=== PATIENT | male | born 1990 | race Hispanic/Latino ===

== ENCOUNTER 2019-11-01 08:27 | Emergency (ER) | payer MEDICAID ==
[2019-11-01 08:33] VITALS: BP 151/93
--- NOTE | 2019-11-01 10:20 | Emergency Department Report ---
ED ENT HPI - General Chief complaint: Dental/Oral Stated complaint: LFT SIDE TOOTHACHE/SWELLING Time Seen by Provider: 11/01/19 10:17 Source: patient Mode of arrival: Ambulatory Limitations: No Limitations - History of Present Illness Initial comments: 29-year-old male presents to the emergency room complaining of dental pain and swelling to the left side of his face started 1 day ago. Patient does have a past medical history of schizophrenia and reports he takes his medications. Patient does report he is aware that he has some bad teeth in his mouth. Patient states daily he does have a pillowcase folder that is planning to take him to the dentist. Patient denies any fever chills no nausea no vomiting no headache. MD complaint: tooth pain - Related Data Previous Rx's Medication Instructions Recorded Last Taken Type Clindamycin [Clindamycin CAP] 300 mg PO Q8H #30 capsule 11/01/19 Unknown Rx Ibuprofen [Motrin 600 MG tab] 600 mg PO Q8H PRN #30 tablet 11/01/19 Unknown Rx Allergies Allergy/AdvReac Type Severity Reaction Status Date / Time No Known Allergies Allergy Verified 10/19/19 08:50 ED Dental HPI - General Chief complaint: Dental/Oral Stated complaint: LFT SIDE TOOTHACHE/SWELLING Time Seen by Provider: 11/01/19 10:17 Source: patient Mode of arrival: Ambulatory Limitations: No Limitations - Related Data Previous Rx's Medication Instructions Recorded Last Taken Type Clindamycin [Clindamycin CAP] 300 mg PO Q8H #30 capsule 11/01/19 Unknown Rx Ibuprofen [Motrin 600 MG tab] 600 mg PO Q8H PRN #30 tablet 11/01/19 Unknown Rx Allergies Allergy/AdvReac Type Severity Reaction Status Date / Time No Known Allergies Allergy Verified 10/19/19 08:50 ED Review of Systems ROS: Stated complaint: LFT SIDE TOOTHACHE/SWELLING Other details as noted in HPI ED Past Medical Hx - Past Medical History Previous Medical History?: Yes Hx Psychiatric Treatment: Yes (schizophrenia) - Surgical History Past Surgical History?: No - Social History Smoking Status: Never Smoker Substance Use Type: None - Medications Home Medications: Home Medications Medication Instructions Recorded Confirmed Last Taken Type Clindamycin [Clindamycin CAP] 300 mg PO Q8H #30 capsule 11/01/19 Unknown Rx Ibuprofen [Motrin 600 MG tab] 600 mg PO Q8H PRN #30 tablet 11/01/19 Unknown Rx ED Physical Exam - General Limitations: No Limitations ED Course Vital Signs 11/01/19 08:28 Temperature 99 F Pulse Rate 145 H Respiratory 16 Rate Blood Pressure 151/93 O2 Sat by Pulse 97 Oximetry ED Medical Decision Making - Medical Decision Making 29-year-old male presents to the emergency room complaining of dental pain and swelling to the left side of his face started 1 day ago. Patient does have a past medical history of schizophrenia and reports he takes his medications. Patient does report he is aware that he has some bad teeth in his mouth. Patient states daily he does have a pillowcase folder that is planning to take him to the dentist. Patient denies any fever chills no nausea no vomiting no headache. Patient be given ibuprofen and clindamycin during his ER visit. Patient be discharged home on ibuprofen and clindamycin and a referral to dental. Critical care attestation.: If time is entered above; I have spent that time in minutes in the direct care of this critically ill patient, excluding procedure time. ED Disposition Clinical Impression: Dental abscess Disposition: TO HOME OR SELFCARE Is pt being admited?: No Does the pt Need Aspirin: No Condition: Stable Instructions: Abscess (ED) Additional Instructions: Complete antibiotics as prescribed. Pain medication as needed. Is imperative that you follow-up with a dentist as she had multiple decaying your mouth. Prescriptions: Clindamycin [Clindamycin CAP] 300 mg PO Q8H #30 capsule Ibuprofen [Motrin 600 MG tab] 600 mg PO Q8H PRN #30 tablet PRN Reason: Pain , Severe (7-10) Referrals: [facility] [Outside] - 3-[address] [facility] [Outside] - 3-5 Days Forms: Work/School Release Form(ED)
[2019-11-01] MEDS ORDERED: CLINDAMYCIN 300 MG CAP PO ONE (10:25)
[2019-11-01] MEDS ORDERED: IBUPROFEN 600 MG TAB PO ONE (10:25)
== END 2019-11-01 11:01 | disposition home or self-care (01) ==
LOC: ED 08:27
DX: K04.7 Periapical abscess without sinus (principal); F20.9 Schizophrenia, unspecified; Z79.1 Long term (current) use of non-steroidal anti-inflammatories (NSAID); Z79.2 Long term (current) use of antibiotics
CPT/HCPCS: 99282

== ENCOUNTER 2019-12-31 17:57 | Emergency (ER) | payer MEDICAID ==
[2020-01-01] MEDS ORDERED: BUTALB/ACETAMINOPHEN/CAFFEINE TAB PO ONE (01:47)
[2020-01-01] MEDS ORDERED: IBUPROFEN 600 MG TAB PO ONE (01:47)
--- NOTE | 2020-01-01 02:42 | Emergency Department Report ---
ED Headache HPI - General Chief Complaint: Headache Stated Complaint: HEADACHE - History of Present Illness Initial Comments: Patient is a 29-year-old white male with a history of schizophrenia presents to the ED with a complaint of acute onset persistent left frontal headache for the last 2 days. Patient states that he took [id number] medications for pain with no relief. Patient denies change in vision, nausea, vomiting, dizziness, neck pain, chest pain, shortness of breath, traumatic injury or fall, seizures, syncope, fever and chills, nasal and sinus congestion or abdominal pain and sore throat. Timing/Duration: 24 hours, constant, waxing and waning Quality: moderate Head Injury Location: frontal Recent Head Trauma: no recent headache/trauma Associated Symptoms: denies symptoms. denies: confusion, fatigue, facial pain, fever/chills, loss of consciousness, nausea/vomiting, nasal congestion, nasal drainage, seizures, sinus infection, stiff neck, vision changes, weakness Allergies/Adverse Reactions: Allergies No Known Allergies Allergy (Verified 10/19/19 08:50) Home Medications: Ambulatory Orders Clindamycin [Clindamycin CAP] 300 mg PO Q8H #30 capsule 11/01/19 Ibuprofen [Motrin 600 MG tab] 600 mg PO Q8H PRN #30 tablet 11/01/19 Butalb/Acetamin/Caff 50-325-40 [Fioricet 50-325-40] 1 - 2 tab PO Q6HR PRN #12 tab 01/01/20 Ibuprofen [Motrin] 600 mg PO Q8H PRN #20 tablet 01/01/20 ED Review of Systems ROS: Stated complaint: HEADACHE Other details as noted in HPI Constitutional: denies: chills, fever Eyes: denies: eye pain, eye discharge, vision change ENT: denies: ear pain, throat pain Respiratory: denies: cough, shortness of breath, wheezing Cardiovascular: denies: chest pain, palpitations Endocrine: no symptoms reported Gastrointestinal: denies: abdominal pain, nausea, diarrhea Genitourinary: denies: urgency, dysuria Musculoskeletal: arthralgia, myalgia. denies: back pain, joint swelling Skin: denies: rash, lesions Neurological: headache. denies: weakness, paresthesias Psychiatric: denies: anxiety, depression Hematological/Lymphatic: denies: easy bleeding, easy bruising ED Past Medical Hx - Past Medical History Previous Medical History?: Yes Hx Psychiatric Treatment: Yes (schizophrenia) - Surgical History Past Surgical History?: No - Social History Smoking Status: Current Every Day Smoker Substance Use Type: Prescribed - Medications Home Medications: Home Medications Medication Instructions Recorded Confirmed Last Taken Type Clindamycin [Clindamycin CAP] 300 mg PO Q8H #30 capsule 11/01/19 Unknown Rx Ibuprofen [Motrin 600 MG tab] 600 mg PO Q8H PRN #30 tablet 11/01/19 Unknown Rx Butalb/Acetamin/Caff 50-325-40 1 - 2 tab PO Q6HR PRN #12 tab 01/01/20 Unknown Rx [Fioricet 50-325-40] Ibuprofen [Motrin] 600 mg PO Q8H PRN #20 tablet 01/01/20 Unknown Rx ED Physical Exam - General Limitations: Other General appearance: alert, in no apparent distress - Head Head exam: Present: atraumatic, normocephalic, normal inspection - Eye Eye exam: Present: normal appearance, PERRL, EOMI Pupils: Present: normal accommodation - ENT ENT exam: Present: normal exam, normal orophraynx, mucous membranes moist, TM's normal bilaterally, normal external ear exam - Neck Neck exam: Present: normal inspection, full ROM - Respiratory Respiratory exam: Present: normal lung sounds bilaterally. Absent: respiratory distress, wheezes, rales, rhonchi, stridor, chest wall tenderness, accessory muscle use, prolonged expiratory - Cardiovascular Cardiovascular Exam: Present: normal rhythm, tachycardia, normal heart sounds. Absent: systolic murmur, diastolic murmur, rubs, gallop - GI/Abdominal GI/Abdominal exam: Present: soft, normal bowel sounds. Absent: tenderness, guarding, rebound, hyperactive bowel sounds, hypoactive bowel sounds, organomegaly, mass - Extremities Exam Extremities exam: Present: normal inspection, full ROM, normal capillary refill - Back Exam Back exam: Present: normal inspection, full ROM. Absent: tenderness, CVA tenderness (R), CVA tenderness (L), muscle spasm, paraspinal tenderness - Neurological Exam Neurological exam: Present: alert, oriented X3, CN II-XII intact, normal gait, reflexes normal - Psychiatric Psychiatric exam: Present: normal affect, normal mood - Skin Skin exam: Present: warm, dry, intact, normal color. Absent: rash ED Course Vital Signs 10/11/20 18:16 Temperature 99.8 F H Pulse Rate 124 H Respiratory 18 Rate Blood Pressure 127/86 O2 Sat by Pulse 97 Oximetry ED Medical Decision Making - Medical Decision Making This is a 29-year-old white male with a history of schizophrenia presents to the ED with a complaint of acute onset persistent left frontal headache for the last 2 days. Patient states that he took [id number] medications for pain with no relief. In the ED, patient is alert and oriented x3 and is not in distress but tachycardic in triage. Patient was treated for pain in the ED and on reevaluation, patient's pain improved significantly and tachycardia also resolved. Patient was discharged home on pain medications and advised to follow-up with his primary care physician in 5 to 7 days for reevaluation or return to the ED immediately if symptoms get worse. - Differential Diagnosis Migraine headache; tension headache; cluster headache; sinus headache Critical care attestation.: If time is entered above; I have spent that time in minutes in the direct care of this critically ill patient, excluding procedure time. ED Disposition Clinical Impression: Acute non intractable tension-type headache Disposition: DC- TO HOME OR SELFCARE Is pt being admited?: No Does the pt Need Aspirin: No Condition: Stable Instructions: Acute Headache (ED) Additional Instructions: Take medication with food, drink plenty of fluids and follow-up with your primary care physician in 5 to 7 days for reevaluation. Return to the ED immediately if symptoms get worse. Prescriptions: Butalb/Acetamin/Caff 50-325-40 [Fioricet 50-325-40] 1 - 2 tab PO Q6HR PRN #12 tab PRN Reason: Headache Ibuprofen [Motrin] 600 mg PO Q8H PRN #20 tablet PRN Reason: Pain Referrals: [facility] [Provider Group] - 3-5 Days Time of Disposition: 02:36 Print Language: SWEDISH
[2020-01-01 03:07] VITALS: BP 124/82
== END 2020-01-01 03:10 | disposition home or self-care (01) ==
LOC: ED 17:57
DX: G44.209 Tension-type headache, unspecified, not intractable (principal); F20.9 Schizophrenia, unspecified; F17.200 Nicotine dependence, unspecified, uncomplicated; Z79.1 Long term (current) use of non-steroidal anti-inflammatories (NSAID); Z79.2 Long term (current) use of antibiotics; Z79.899 Other long term (current) drug therapy

== ENCOUNTER 2020-01-04 08:09 | Emergency (ER) | payer MEDICAID ==
--- NOTE | 2020-01-04 08:10 | Emergency Department Report ---
ED Chest Pain HPI - General Stated Complaint: CHEST PAIN Source: patient - History of Present Illness Initial Comments: 29-year-old male, history of schizophrenia, presents to ED from [facility] with complaint of chest pain. Patient states he awoke from sleep with pain in his chest. He states the pain feels like a throbbing pain in the mid chest, nonradiating. He denies any cough, fever, shortness of breath, leg pain or swelling. Patient reports associated headache as well. Patient states he usually experiences these symptoms secondary to anxiety. 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 States he has not used meth in 8 months. Patient reports he is living at [facility] because he was homeless. MD Complaint: chest pain -: hour(s) (1) Onset: awoke with symptoms Pain Location: substernal Pain Radiation: none Severity: mild Quality: other (Throbbing) Consistency: constant Improves With: nothing Worsens With: nothing re: denies: nausea, vomting, diaphoresis, dyspnea Other Symptoms: denies: cough, fever, syncope, leg swelling - Related Data Previous Rx's Medication Instructions Recorded Last Taken Type Clindamycin [Clindamycin CAP] 300 mg PO Q8H #30 capsule 11/01/19 Unknown Rx Ibuprofen [Motrin 600 MG tab] 600 mg PO Q8H PRN #30 tablet 11/01/19 Unknown Rx Butalb/Acetamin/Caff 50-325-40 1 - 2 tab PO Q6HR PRN #12 tab 01/01/20 Unknown Rx [Fioricet 50-325-40] Ibuprofen [Motrin] 600 mg PO Q8H PRN #20 tablet 01/01/20 Unknown Rx Allergies Allergy/AdvReac Type Severity Reaction Status Date / Time No Known Allergies Allergy Verified 10/19/19 08:50 Heart Score - HEART Score History: Slightly suspicious EKG: Normal Age: < 45 Risk factors: No known risk factors Troponin: < normal limit HEART Score: 0 ED Review of Systems ROS: Stated complaint: CHEST PAIN Other details as noted in HPI Comment: All other systems reviewed and negative Constitutional: denies: chills, fever Respiratory: denies: cough, shortness of breath Cardiovascular: chest pain Gastrointestinal: denies: nausea, vomiting Neurological: headache ED Past Medical Hx - Past Medical History Hx Psychiatric Treatment: Yes (schizophrenia) - Social History Smoking Status: Current Every Day Smoker Substance Use Type: Prescribed - Medications Home Medications: Home Medications Medication Instructions Recorded Confirmed Last Taken Type Clindamycin [Clindamycin CAP] 300 mg PO Q8H #30 capsule 11/01/19 Unknown Rx Ibuprofen [Motrin 600 MG tab] 600 mg PO Q8H PRN #30 tablet 11/01/19 Unknown Rx Butalb/Acetamin/Caff 50-325-40 1 - 2 tab PO Q6HR PRN #12 tab 01/01/20 Unknown Rx [Fioricet 50-325-40] Ibuprofen [Motrin] 600 mg PO Q8H PRN #20 tablet 01/01/20 Unknown Rx ED Physical Exam - General General appearance: alert, in no apparent distress - Head Head exam: Present: atraumatic, normocephalic - Eye Eye exam: Present: normal appearance, EOMI - ENT ENT exam: Present: mucous membranes moist - Neck Neck exam: Present: normal inspection - Respiratory Respiratory exam: Present: normal lung sounds bilaterally. Absent: respiratory distress - Cardiovascular Cardiovascular Exam: Present: normal rhythm, tachycardia - GI/Abdominal GI/Abdominal exam: Present: soft. Absent: distended, tenderness - Extremities Exam Extremities exam: Present: normal inspection. Absent: pedal edema, calf tenderness - Neurological Exam Neurological exam: Present: alert, oriented X3 - Psychiatric Psychiatric exam: Present: flat affect - Skin Skin exam: Present: warm, dry, intact, normal color ED Course Vital Signs 01/04/20 01/04/20 01/04/20 08:08 08:46 08:49 Temperature 97.9 F Pulse Rate 112 H Respiratory 18 18 18 Rate Blood Pressure 125/72 Blood Pressure 125/72 [Right] O2 Sat by Pulse 100 100 Oximetry 01/04/20 09:19 Temperature Pulse Rate Respiratory 18 Rate Blood Pressure Blood Pressure [Right] O2 Sat by Pulse Oximetry ED Medical Decision Making - Lab Data Result diagrams: 01/04/20 08:10 01/04/20 08:10 - EKG Data -: EKG Interpreted by Ms EKG shows normal: sinus rhythm, axis, intervals, QRS complexes, ST-T waves Rate: tachycardia (rate 103) - EKG Data Interpretation: no acute changes - Radiology Data Radiology results: report reviewed, image reviewed - Medical Decision Making Patient ambulating around the ED, talking on phone in hallway, repeatedly asking nurse to go outside so that he can smoke cigarettes. Patient is in no respiratory distress. Chest x-ray is negative. EKG is unremarkable except for mild sinus tachycardia, rate 103. D-dimer was elevated, so CTA chest was obtained to rule out PE. No evidence of PE on CT. There is mention of possible pulmonary edema, however patient is not in respiratory distress, O2 sats are normal, and lungs are clear. However, patient advised to follow-up on an outpatient basis. Return precautions given. Will discharge at this time. - Differential Diagnosis Anxiety, ACS, PE Critical care attestation.: If time is entered above; I have spent that time in minutes in the direct care of this critically ill patient, excluding procedure time. ED Disposition Clinical Impression: Anxiety, Chest pain Disposition: DC-01 TO HOME OR SELFCARE Is pt being admited?: No Condition: Stable Instructions: Chest Pain (ED) Referrals: PRIMARY CARE [Primary Care Provider] - 3-5 Days [facility] [Provider Group] - 3-5 Days Time of Disposition: 11:26
[2020-01-04 08:12] VITALS: BP 125/72
[2020-01-04] MEDS ORDERED: KETOROLAC 30 MG/1 ML INJ IV ONE (08:14)
--- NOTE | 2020-01-04 08:51 | XRay Report ---
CHEST 1 VIEW 01/04/2020 7:45 AM INDICATION / CLINICAL INFORMATION: chest pain. COMPARISON: 10/19/2019 FINDINGS: SUPPORT DEVICES: None. HEART / MEDIASTINUM: No significant abnormality. LUNGS / PLEURA: No significant pulmonary or pleural abnormality. No pneumothorax. ADDITIONAL FINDINGS: No significant additional findings. IMPRESSION: 1. No acute findings. Signer Name: Mikhail Guillen MD Signed: 01/04/2020 8:47 AM Workstation Name: [id number]
[2020-01-04] MEDS ORDERED: LORazepam 2 MG/ML VIAL ONE (09:07)
[2020-01-04] MEDS ORDERED: LORazepam 2 MG/ML VIAL IV ONE (09:07)
[2020-01-04 09:15] LABS: Basophils % (Auto) 0.5 % (0.0-1.8); Eosinophils # (Auto) 0.3 K/mm3 (0.0-0.4); Eosinophils % (Auto) 3.2 % (0.0-4.3); Hematocrit 38.4 % (35.5-45.6); Hemoglobin 13.4 gm/dl (11.8-15.2); Lymphocytes # (Auto) 2.2 K/mm3 (1.2-5.4); Lymphocytes % (Auto) 25.1 % (13.4-35.0); Mean Corpuscular HGB Conc 35 % (32-34); Mean Corpuscular Volume 97 fl (84-94); Monocytes % (Auto) 11.7 % (0.0-7.3); Platelet Count 203 K/mm3 (140-440); Red Blood Count 3.95 M/mm3 (3.65-5.03); Red Cell Distribution Width 12.9 % (13.2-15.2)
[2020-01-04 09:37] LABS: BUN/Creatinine Ratio 11; Blood Urea Nitrogen 10 mg/dL (9-20); Calcium 9.3 mg/dL (8.4-10.2); Hemolysis Index 16
[2020-01-04 09:43] LABS: Amphetamine Screen,Urine Negative; Benzodiazepines Screen,Urine Negative; Cannabinoid Screen,Urine Negative; Cocaine Screen,Urine Negative; Methadone Screen,Urine Negative; Opiate Screen,Urine Negative
[2020-01-04 10:14] LABS: INR 1.04 (0.87-1.13)
[2020-01-04 10:15] LABS: Partial Thromboplastin Time 31.4 Sec. (24.2-36.6)
--- NOTE | 2020-01-04 11:10 | Cat Scan Report ---
CTA CHEST WITH IV CONTRAST INDICATION: chest pain. TECHNIQUE: Axial CT images were obtained through the chest after injection of 100 mL IV Omnipaque 350 IV contras t. 3 plane MIP reconstructions were produced. All CT scans at this location are performed using CT do se reduction for ALARA by means of automated exposure control. COMPARISON: CTA chest 10/19/2019 FINDINGS: Pulmonary Arteries: No pulmonary emboli. Lungs: Mild linear interlobular septal thickening suggesting mild interstitial pulmonary edema. Trachea and Bronchi: No significant abnormality. Heart and Pericardium: No significant abnormality. Vasculature: No significant abnormality. Lymphatics: No lymphadenopathy. Additional Findings: None. Upper Abdomen: No acute findings. Skeletal Structures: No acute findings or aggressive bone lesions. IMPRESSION: 1. No CT evidence for pulmonary embolism. 2. Probable mild interstitial pulmonary edema. Signer Name: Mikhail Guillen MD Signed: 01/04/2020 11:05 AM Workstation Name: [id number]
== END 2020-01-04 11:57 | disposition home or self-care (01) ==
LOC: ED 08:09
DX: R07.89 Other chest pain (principal); F20.9 Schizophrenia, unspecified; F17.200 Nicotine dependence, unspecified, uncomplicated; Z79.1 Long term (current) use of non-steroidal anti-inflammatories (NSAID); Z79.899 Other long term (current) drug therapy
CPT/HCPCS: 36415; 71045; 71275; 80048; 80307; 84484; 85025; 85379; 85610; 85730; 93005; 96374; 96375; 99285; J1885; J2060; Q9967

== ENCOUNTER 2020-01-04 18:26 | Emergency (ER) | payer MEDICAID ==
[2020-01-04] MEDS ORDERED: hydrOXYzine PAMOATE 25 MG CAP PO ONE (20:03)
[2020-01-04] MEDS ORDERED: KETOROLAC 60 MG/2 ML INJ IM ONE (20:03)
--- NOTE | 2020-01-04 20:06 | Emergency Department Report ---
<LATESHA AKHTAR - Last Filed: 01/05/20 00:49> ED Psych HPI - General Chief Complaint: Psych Stated Complaint: 1013 Time Seen by Provider: 01/04/20 19:16 Source: patient, police Mode of arrival: Ambulatory - History of Present Illness Initial Comments: 29-year-old male with a past medical history of anxiety, schizophrenia, and previous methamphetamine abuse presents to the hospital planing of chest pain secondary to anxiety. Questionable mental delay as well based on patient's communication skills. Patient unable to characterize pain but says yes to qualifiers suggested. He was seen here earlier this morning for chest pain and received ED work-up including EKG, negative troponin, normal chest x-ray, elevated D-dimer with subsequent normal CT angiogram chest. Patient presents here today in police custody detained in [facility] with a signed officer transport form stating that he he had anxiety and agitation. [facility] did not report any physical assault/altercation or property damage. Is unclear as to why the police had to be called as opposed to an ambulance. Patient is cooperative and nonviolent here in the ED. He denies suicidal homicidal ideation. Nurse spoke to [facility] provider who expressed that patient became agitated after he was denied extra dose of his medications specifically Klonopin. Patient otherwise receives his medication as scheduled because it is provided by the [facility] staff - Related Data Home Medications Medication Instructions Recorded Confirmed Last Taken Divalproex [Nikki RECINOS] 500 mg PO TID 01/04/20 01/04/20 1 Day Ago ~01/03/20 Gabapentin [Neurontin] 800 mg PO TID 01/04/20 01/04/20 1 Day Ago ~01/03/20 clonazePAM [KlonoPIN] 2 mg PO BID 01/04/20 01/04/20 1 Day Ago ~01/03/20 risperiDONE [RisperDAL] 3 mg PO HS 01/04/20 01/04/20 1 Day Ago ~01/03/20 Previous Rx's Medication Instructions Recorded Last Taken Type Clindamycin [Clindamycin CAP] 300 mg PO Q8H #30 capsule 11/01/19 Unknown Rx Ibuprofen [Motrin 600 MG tab] 600 mg PO Q8H PRN #30 tablet 11/01/19 Unknown Rx Butalb/Acetamin/Caff 50-325-40 1 - 2 tab PO Q6HR PRN #12 tab 01/01/20 Unknown Rx [Fioricet 50-325-40] Ibuprofen [Motrin] 600 mg PO Q8H PRN #20 tablet 01/01/20 Unknown Rx Allergies Allergy/AdvReac Type Severity Reaction Status Date / Time No Known Allergies Allergy Verified 10/19/19 08:50 ED Past Medical Hx - Past Medical History Hx Psychiatric Treatment: Yes (schizophrenia) - Social History Smoking Status: Current Every Day Smoker Substance Use Type: None - Medications Home Medications: Home Medications Medication Instructions Recorded Confirmed Last Taken Type Clindamycin [Clindamycin CAP] 300 mg PO Q8H #30 capsule 11/01/19 Unknown Rx Ibuprofen [Motrin 600 MG tab] 600 mg PO Q8H PRN #30 tablet 11/01/19 Unknown Rx Butalb/Acetamin/Caff 50-325-40 1 - 2 tab PO Q6HR PRN #12 tab 01/01/20 Unknown Rx [Fioricet 50-325-40] Ibuprofen [Motrin] 600 mg PO Q8H PRN #20 tablet 01/01/20 Unknown Rx Divalproex [Nikki RECINOS] 500 mg PO TID 01/04/20 01/04/20 1 Day Ago History ~01/03/20 Gabapentin [Neurontin] 800 mg PO TID 01/04/20 01/04/20 1 Day Ago History ~01/03/20 clonazePAM [KlonoPIN] 2 mg PO BID 01/04/20 01/04/20 1 Day Ago History ~01/03/20 risperiDONE [RisperDAL] 3 mg PO HS 01/04/20 01/04/20 1 Day Ago History ~01/03/20 ED Physical Exam - General Limitations: No Limitations ED Medical Decision Making - Lab Data Result diagrams: 01/04/20 20:13 01/04/20 20:13 Lab Results 01/04/20 01/04/20 01/04/20 Range/Units 19:42 19:42 20:13 WBC 9.7 (4.5-11.0) K/mm3 RBC 4.03 (3.65-5.03) M/mm3 Hgb 13.8 (11.8-15.2) gm/dl Hct 39.0 (35.5-45.6) % MCV 97 H (84-94) fl MCH 34 H (28-32) pg MCHC 35 H (32-34) % RDW 13.1 L (13.2-15.2) % Plt Count 219 (140-440) K/mm3 Lymph % (Auto) 32.3 (13.4-35.0) % [place] % (Auto) 10.9 H (0.0-7.3) % Eos % (Auto) 3.3 (0.0-4.3) % Baso % (Auto) 0.6 (0.0-1.8) % Lymph # (Auto) 3.1 (1.2-5.4) K/mm3 [place] # (Auto) 1.1 H (0.0-0.8) K/mm3 Eos # (Auto) 0.3 (0.0-0.4) K/mm3 Baso # (Auto) 0.1 (0.0-0.1) K/mm3 Seg Neutrophils % 52.9 (40.0-70.0) % Seg Neutrophils # 5.1 (1.8-7.7) K/mm3 Sodium (137-145) mmol/L Potassium (3.6-5.0) mmol/L Chloride (98-107) mmol/L Carbon Dioxide (22-30) mmol/L Anion Gap mmol/L BUN (9-20) mg/dL Creatinine (0.8-1.3) mg/dL Estimated GFR ml/min BUN/Creatinine Ratio % Glucose (75-100) mg/dL Calcium (8.4-10.2) mg/dL Troponin T (0.00-0.029) ng/mL Urine Color Yellow (Yellow) Urine Turbidity Clear (Clear) Urine pH 5.0 (5.0-7.0) Ur Specific [place] 1.046 H (1.003-1.030) Urine Protein <15 mg/dl (Negative) mg/dL Urine Glucose (UA) Neg (Negative) mg/dL Urine Ketones Neg (Negative) mg/dL Urine Blood Neg (Negative) Urine Nitrite Neg (Negative) Urine Bilirubin Neg (Negative) Urine Urobilinogen < 2.0 (<2.0) mg/dL Ur Leukocyte Esterase Neg (Negative) Urine WBC (Auto) 3.0 (0.0-6.0) /HPF Urine RBC (Auto) 1.0 (0.0-6.0) /HPF U Epithel Cells (Auto) 1.0 (0-13.0) /HPF Urine Mucus Few /HPF Salicylates (2.8-20.0) mg/dL Urine Opiates Screen Presumptive negative Urine Methadone Screen Presumptive negative Acetaminophen (10.0-30.0) ug/mL Ur Barbiturates Screen Presumptive positive Valproic Acid (50-100) ug/mL Ur Phencyclidine Scrn Presumptive negative Ur Amphetamines Screen Presumptive negative U Benzodiazepines Scrn Presumptive negative Urine Cocaine Screen Presumptive negative U Marijuana (THC) Screen Presumptive negative Drugs of Abuse Note Disclamer Plasma/Serum Alcohol (0-0.07) % 01/04/20 01/04/20 01/04/20 Range/Units 20:13 20:13 20:13 WBC (4.5-11.0) K/mm3 RBC (3.65-5.03) M/mm3 Hgb (11.8-15.2) gm/dl Hct (35.5-45.6) % MCV (84-94) fl MCH (28-32) pg MCHC (32-34) % RDW (13.2-15.2) % Plt Count (140-440) K/mm3 Lymph % (Auto) (13.4-35.0) % [place] % (Auto) (0.0-7.3) % Eos % (Auto) (0.0-4.3) % Baso % (Auto) (0.0-1.8) % Lymph # (Auto) (1.2-5.4) K/mm3 [place] # (Auto) (0.0-0.8) K/mm3 Eos # (Auto) (0.0-0.4) K/mm3 Baso # (Auto) (0.0-0.1) K/mm3 Seg Neutrophils % (40.0-70.0) % Seg Neutrophils # (1.8-7.7) K/mm3 Sodium 138 (137-145) mmol/L Potassium 3.8 (3.6-5.0) mmol/L Chloride 104.0 (98-107) mmol/L Carbon Dioxide 23 (22-30) mmol/L Anion Gap 15 mmol/L BUN 12 (9-20) mg/dL Creatinine 0.9 (0.8-1.3) mg/dL Estimated GFR > 60 ml/min BUN/Creatinine Ratio 13 % Glucose 103 H (75-100) mg/dL Calcium 9.3 (8.4-10.2) mg/dL Troponin T < 0.010 (0.00-0.029) ng/mL Urine Color (Yellow) Urine Turbidity (Clear) Urine pH (5.0-7.0) Ur Specific [place] (1.003-1.030) Urine Protein (Negative) mg/dL Urine Glucose (UA) (Negative) mg/dL Urine Ketones (Negative) mg/dL Urine Blood (Negative) Urine Nitrite (Negative) Urine Bilirubin (Negative) Urine Urobilinogen (<2.0) mg/dL Ur Leukocyte Esterase (Negative) Urine WBC (Auto) (0.0-6.0) /HPF Urine RBC (Auto) (0.0-6.0) /HPF U Epithel Cells (Auto) (0-13.0) /HPF Urine Mucus /HPF Salicylates < 0.3 L (2.8-20.0) mg/dL Urine Opiates Screen Urine Methadone Screen Acetaminophen 5.0 L (10.0-30.0) ug/mL Ur Barbiturates Screen Valproic Acid < 2.8 L (50-100) ug/mL Ur Phencyclidine Scrn Ur Amphetamines Screen U Benzodiazepines Scrn Urine Cocaine Screen U Marijuana (THC) Screen Drugs of Abuse Note Plasma/Serum Alcohol (0-0.07) % 10/15/20 Range/Units 20:13 WBC (4.5-11.0) K/mm3 RBC (3.65-5.03) M/mm3 Hgb (11.8-15.2) gm/dl Hct (35.5-45.6) % MCV (84-94) fl MCH (28-32) pg MCHC (32-34) % RDW (13.2-15.2) % Plt Count (140-440) K/mm3 Lymph % (Auto) (13.4-35.0) % [place] % (Auto) (0.0-7.3) % Eos % (Auto) (0.0-4.3) % Baso % (Auto) (0.0-1.8) % Lymph # (Auto) (1.2-5.4) K/mm3 [place] # (Auto) (0.0-0.8) K/mm3 Eos # (Auto) (0.0-0.4) K/mm3 Baso # (Auto) (0.0-0.1) K/mm3 Seg Neutrophils % (40.0-70.0) % Seg Neutrophils # (1.8-7.7) K/mm3 Sodium (137-145) mmol/L Potassium (3.6-5.0) mmol/L Chloride (98-107) mmol/L Carbon Dioxide (22-30) mmol/L Anion Gap mmol/L BUN (9-20) mg/dL Creatinine (0.8-1.3) mg/dL Estimated GFR ml/min BUN/Creatinine Ratio % Glucose (75-100) mg/dL Calcium (8.4-10.2) mg/dL Troponin T (0.00-0.029) ng/mL Urine Color (Yellow) Urine Turbidity (Clear) Urine pH (5.0-7.0) Ur Specific [place] (1.003-1.030) Urine Protein (Negative) mg/dL Urine Glucose (UA) (Negative) mg/dL Urine Ketones (Negative) mg/dL Urine Blood (Negative) Urine Nitrite (Negative) Urine Bilirubin (Negative) Urine Urobilinogen (<2.0) mg/dL Ur Leukocyte Esterase (Negative) Urine WBC (Auto) (0.0-6.0) /HPF Urine RBC (Auto) (0.0-6.0) /HPF U Epithel Cells (Auto) (0-13.0) /HPF Urine Mucus /HPF Salicylates (2.8-20.0) mg/dL Urine Opiates Screen Urine Methadone Screen Acetaminophen (10.0-30.0) ug/mL Ur Barbiturates Screen Valproic Acid (50-100) ug/mL Ur Phencyclidine Scrn Ur Amphetamines Screen U Benzodiazepines Scrn Urine Cocaine Screen U Marijuana (THC) Screen Drugs of Abuse Note Plasma/Serum Alcohol < 0.01 (0-0.07) % - EKG Data -: EKG Interpreted by Me EKG shows normal: sinus rhythm, ST-T waves (no stemi or t wave inv) Rate: tachycardia (103) - EKG Data When compared to previous EKG there are: no significant change - Medical Decision Making Patient provided IM Toradol for chest pain and Vistaril p.o. for his persistent anxiety symptoms. Repeat vital signs show improvement. Patient's current home medications will be continued in the ED. 1013 signed given that patient threatened arresting officer as well as [facility] residents with homicidal threats. Patient had a chest pain work-up earlier in the day which was normal and continues to have a negative troponin, normal EKG, and low risk chest pain without significant cardiac risk factors. Patient is medically clear for inpatient psychiatric treatment Critical Care Time: No ED Disposition Clinical Impression: Outbursts of explosive behavior, Atypical chest pain Disposition: DC-01 TO HOME OR SELFCARE Is pt being admited?: No Condition: Stable Instructions: Chest Pain (ED), Stress (ED) Time of Disposition: 00:50 <MILENA CARUSO - Last Filed: 01/05/20 11:26> ED Review of Systems ROS: Stated complaint: 1013 Other details as noted in HPI ED Course Vital Signs 01/04/20 01/04/20 01/04/20 18:55 20:11 20:42 Temperature 98.4 F 98.1 F Pulse Rate 117 H 63 Respiratory 18 16 16 Rate Blood Pressure 117/80 116/67 [Left] O2 Sat by Pulse 98 100 Oximetry 01/04/20 01/05/20 01/05/20 21:12 01:54 08:25 Temperature 97.7 F 98.0 F Pulse Rate 80 89 Respiratory 16 18 20 Rate Blood Pressure 100/63 105/71 [Left] O2 Sat by Pulse 97 98 Oximetry - Reevaluation(s) Reevaluation #1: 01/05/20 11:25 Patient Name: LUCIE ANDERSEN Date of : 89 Patient Status: Emergency Emergency Provider: LATESHA AKHTAR Date: 01/05/20 10:51 Initialization Date: 01/05/20 10:51 History of Present Illness - Reason for Consult Consult date: 01/05/20 Reason for consult: MHE Requesting physician: LATESHA AKHTAR - History of Present Psychiatric Illness Per ED Provider: 29-year-old male with a past medical history of anxiety, schizophrenia, and previous methamphetamine abuse presents to the hospital planing of chest pain secondary to anxiety. Questionable mental delay as well based on patient's communication skills. Patient unable to characterize pain but says yes to qualifiers suggested. He was seen here earlier this morning for chest pain and received ED work-up including EKG, negative troponin, normal chest x-ray, elevated D-dimer with subsequent normal CT angiogram chest. Patient presents here today in police custody detained in here cuffs with a signed officer transport form stating that he he had anxiety and agitation. [facility] did not report any physical assault/altercation or property damage. Is unclear as to why the police had to be called as opposed to an ambulance. Patient is cooperative and nonviolent here in the ED. He denies suicidal homicidal ideation. Nurse spoke to [facility] provider who expressed that patient became agitated after he was denied extra dose of his medications specifically Klonopin. Patient otherwise receives his medication as scheduled because it is provided by the [facility] staff. Per [facility]: Pt is a 29 yo male presenting to ED for MHE, as pt reported anxiety. During ax, pt presented with cooperative behaviors, anxious mood and flat affect. Pt reports onset of angry outburst after he was unable to receive an extra dose of medication. Pt reports he ran from police "My father a couple of months ago". According to collateral, Mrs. Kaplan, digital project manager, stated pt did not physically aggressive but was agitated due not able to smoke a cigarette while staff was giving our medications. Pt was screaming, cursing. Mobile crisis and [employer] were called. Pt shoverd police and threated to kill police, [facility] and mobile crisis staff. Pt medication for trazadone was d/ c on 01/04/20 due to a reaction of aggression/anxiety. Pt denies SI/HI. Pt denies A/V H. Pt reports hx of Paranoid Schizophrenia. Pt denies hx of drug or alcohol abuse. According to collateral, pt is addicted to unknown substaance. Pt drank alcohol several weeks ago and was seeking additional medications. Pt reports residing in a [facility]. Pt denies decline in eating/sleeping PSYCH HPI Patient is a 29-year-old single with her child, homeless and disabled male who currently presents from [facility] who reportedly was being brought here by patchwork of her personal because he was running away from the officer because he was scared and was having a panic attack and the reason was brought here was because of chest pain. Patient currently denies any voices denies suicidal ideation or homicidal thoughts Review of initial presentation reported that patient told ED provider the same thing that he was brought here because of chest pain, review of collateral information but a consulting group analyst reported that patient was not physically aggressive but was agitated due to refusal to smoking history, prompting him to call the mobile crisis for patientover the police. PAST PSYCHIATRIC HISTORY Diagnoses: History of schizophrenia, bipolar, anxiety and depression Suicide attempts or Self-harm behavior: Patient denies Prior psychiatric hospitalizations: Yes Substance Abuse history: Meth Previous psychiatric medications tried: Yes Outpatient treatment: Yes PAST MEDICAL HISTORY: Heart murmur unspecified Family Psychiatric History: None reported or documented SOCIAL HISTORY Marital Status: Single Living Arrangements: [facility] Employment Status: On disability income Access to guns/weapons: No access Education: High school History of Abuse: None reported Legal History: None reported REVIEW OF SYSTEMS Constitutional: Negative for weight loss ENT: Negative for stridor Respiratory: Negative for cough or hemoptysis All other systems reviewed and are negative MENTAL STATUS EXAMINATION General Appearance and Behavior: Age appropriate, fair hygiene, wearing appropriate clothes, lying in bed, good eye contact, cooperative polite with questioning. Cooperation: Participating/engaged, Psychomotor Behavior: , unremarkable and within normal limits Mood: Good Affect and affective range: Congruent with mood Thought Process: Fluent/Logical Thought Content: Within reality Speech: Normal volume, Regular rate and rhythm Intellectual Functioning: fair Suicidal Ideation: Denies SI Homicidal Ideation: Denies HI Impulse Control: Impaired Insight and Judgment: Limited insight and judgment Memory: Short term memory intact Attention: Normal, Orientation: Alert, oriented Diagnoses: Assessment and Plan - Psychiatric problem (1) Outbursts of explosive behavior Current Visit: Yes Status: Acute Treatment Plan MEDICATIONS: continue home medications Risks, benefits and alternatives of medications discussed with the patient, questions answered and consent obtained from patient. PSYCHOTHERAPY: Supportive psychotherapy provided MEDICAL: Per primary team DELIRIUM PRECAUTIONS: Please re-orient patient frequently, keep lights on during the day, and minimize benzodiazepines and opiates as these medications could worsen patient's confusion. HEEL WASHER STRINGING MACHINE OPERATOR: DISPOSITION: Do Not Recommend acute inpatient psychiatric hospitalization at this time LEGAL STATUS: 1013 rescinded FOLLOW-UP: Will sign off Thank you for the consult. Please contact with any questions and/or concerns. Reevaluation #2: 01/05/20 11:25 Patient is calm and cooperative at this time. Patient did present with some aggressive behavior and verbal threats but is, currently. Patient is stable for discharge on 1012 has been presented by our mental health staff. ED Medical Decision Making - Lab Data Result diagrams: 01/04/20 20:13 01/04/20 20:13 Critical care attestation.: If time is entered above; I have spent that time in minutes in the direct care of this critically ill patient, excluding procedure time. ED Disposition Is pt being admited?: No Does the pt Need Aspirin: No
[2020-01-04 20:42] LABS: Basophils # (Auto) 0.1 K/mm3 (0.0-0.1); Basophils % (Auto) 0.6 % (0.0-1.8); Eosinophils # (Auto) 0.3 K/mm3 (0.0-0.4); Eosinophils % (Auto) 3.3 % (0.0-4.3); Hemoglobin 13.8 gm/dl (11.8-15.2); Lymphocytes # (Auto) 3.1 K/mm3 (1.2-5.4); Lymphocytes % (Auto) 32.3 % (13.4-35.0); Mean Corpuscular HGB Conc 35 % (32-34); Mean Corpuscular Volume 97 fl (84-94); Monocytes # (Auto) 1.1 K/mm3 (0.0-0.8); Monocytes % (Auto) 10.9 % (0.0-7.3); Platelet Count 219 K/mm3 (140-440); Red Blood Count 4.03 M/mm3 (3.65-5.03); Red Cell Distribution Width 13.1 % (13.2-15.2)
[2020-01-04 20:47] LABS: BUN/Creatinine Ratio 13; Blood Urea Nitrogen 12 mg/dL (9-20); Calcium 9.3 mg/dL (8.4-10.2); Hemolysis Index 14
[2020-01-04 23:47] LABS: Bilirubin,Urine NEG (Negative); Blood,Urine NEG (Negative); Color,Urine Yellow (Yellow); Mucus,Urine FEW /HPF; Protein,Urine <15 mg/dL mg/dL (Negative); Urobilinogen,Urine < 2.0 mg/dL (<2.0)
[2020-01-04 23:52] LABS: Amphetamine Screen,Urine PRESUMPTIVE NEGATIVE; Benzodiazepines Screen,Urine PRESUMPTIVE NEGATIVE; Cannabinoid Screen,Urine PRESUMPTIVE NEGATIVE; Cocaine Screen,Urine PRESUMPTIVE NEGATIVE; Methadone Screen,Urine PRESUMPTIVE NEGATIVE; Opiate Screen,Urine PRESUMPTIVE NEGATIVE
[2020-01-05] MEDS ORDERED: IBUPROFEN 600 MG TAB PO PRN (00:50)
[2020-01-05 08:26] VITALS: BP 105/71
[2020-01-05] MEDS: DIVALPROEX DR 500 MG TAB PO SCH ×2 (09:46→16:04)
[2020-01-05] MEDS: GABAPENTIN 400 MG CAP PO SCH ×2 (09:46→16:04)
[2020-01-05] MEDS ORDERED: clonazePAM 0.5 MG TAB PO SCH (11:00)
--- NOTE | 2020-01-05 11:00 | Consultation ---
History of Present Illness - Reason for Consult Consult date: 01/05/20 Reason for consult: MHE Requesting physician: LATESHA AKHTAR - History of Present Psychiatric Illness Per ED Provider: 29-year-old male with a past medical history of anxiety, schizophrenia, and previous methamphetamine abuse presents to the hospital planing of chest pain secondary to anxiety. Questionable mental delay as well based on patient's communication skills. Patient unable to characterize pain but says yes to qualifiers suggested. He was seen here earlier this morning for chest pain and received ED work-up including EKG, negative troponin, normal chest x-ray, elevated D-dimer with subsequent normal CT angiogram chest. Patient presents here today in police custody detained in here cuffs with a signed officer transport form stating that he he had anxiety and agitation. snf did not report any physical assault/altercation or property damage. Is unclear as to why the police had to be called as opposed to an ambulance. Patient is cooperative and nonviolent here in the ED. He denies suicidal homicidal ideation. Nurse spoke to care home provider who expressed that patient became agitated after he was denied extra dose of his medications specifically Klonopin. Patient otherwise receives his medication as scheduled because it is provided by the care home staff. Per MHA: Pt is a 29 yo male presenting to ED for MHE, as pt reported anxiety. During ax, pt presented with cooperative behaviors, anxious mood and flat affect. Pt reports onset of angry outburst after he was unable to receive an extra dose of medication. Pt reports he ran from police "My father a couple of months ago". According to collateral, Mrs. Kaplan, equine manager, stated pt did not physically aggressive but was agitated due not able to smoke a cigarette while staff was giving our medications. Pt was screaming, cursing. Mobile crisis and [employer] were called. Pt shoverd police and threated to kill police, care home and mobile crisis staff. Pt medication for trazadone was d/c on 01/04/20 due to a reaction of aggression/anxiety. Pt denies SI/HI. Pt denies A/V H. Pt reports hx of Paranoid Schizophrenia. Pt denies hx of drug or alcohol abuse. According to collateral, pt is addicted to unknown substaance. Pt drank alcohol several weeks ago and was seeking a dditional medications. Pt reports residing in a care home. Pt denies decline in eating/sleeping PSYCH HPI Patient is a 29-year-old single with her child, homeless and disabled male who currently presents from [facility] who reportedly was being brought here by patchwork of her personal because he was running away from the officer because he was scared and was having a panic attack and the reason was brought here was because of chest pain. Patient currently denies any voices denies suicidal ideation or homicidal thoughts Review of initial presentation reported that patient told ED provider the same thing that he was brought here because of chest pain, review of collateral information but a partnership marketing manager reported that patient was not physically aggressive but was agitated due to refusal to smoking history, prompting him to call the mobile crisis for patientover the police. PAST PSYCHIATRIC HISTORY Diagnoses: History of schizophrenia, bipolar, anxiety and depression Suicide attempts or Self-harm behavior: Patient denies Prior psychiatric hospitalizations: Yes Substance Abuse history: Meth Previous psychiatric medications tried: Yes Outpatient treatment: Yes PAST MEDICAL HISTORY: Heart murmur unspecified Family Psychiatric History: None reported or documented SOCIAL HISTORY Marital Status: Single Living Arrangements: snf Employment Status: On disability income Access to guns/weapons: No access Education: High school History of Abuse: None reported Legal History: None reported REVIEW OF SYSTEMS Constitutional: Negative for weight loss ENT: Negative for stridor Respiratory: Negative for cough or hemoptysis All other systems reviewed and are negative MENTAL STATUS EXAMINATION General Appearance and Behavior: Age appropriate, fair hygiene, wearing appropriate clothes, lying in bed, good eye contact, cooperative polite with questioning. Cooperation: Participating/engaged, Psychomotor Behavior: , unremarkable and within normal limits Mood: Good Affect and affective range: Congruent with mood Thought Process: Fluent/Logical Thought Content: Within reality Speech: Normal volume, Regular rate and rhythm Intellectual Functioning: fair Suicidal Ideation: Denies SI Homicidal Ideation: Denies HI Impulse Control: Impaired Insight and Judgment: Limited insight and judgment Memory: Short term memory intact Attention: Normal, Orientation: Alert, oriented Diagnoses: Assessment and Plan - Psychiatric problem (1) Outbursts of explosive behavior Current Visit: Yes Status: Acute Treatment Plan MEDICATIONS: continue home medications Risks, benefits and alternatives of medications discussed with the patient, questions answered and consent obtained from patient. PSYCHOTHERAPY: Supportive psychotherapy provided MEDICAL: Per primary team DELIRIUM PRECAUTIONS: Please re-orient patient frequently, keep lights on during the day, and minimize benzodiazepines and opiates as these medications could worsen patient's confusion. DOCUMENTATION CONSULTANT: DISPOSITION: Do Not Recommend acute inpatient psychiatric hospitalization at this time LEGAL STATUS: 1013 rescinded FOLLOW-UP: Will sign off Thank you for the consult. Please contact with any questions and/or concerns. Medications and Allergies Allergies Allergy/AdvReac Type Severity Reaction Status Date / Time No Known Allergies Allergy Verified 10/19/19 08:50 Home Medications Medication Instructions Recorded Confirmed Last Taken Type Clindamycin [Clindamycin CAP] 300 mg PO Q8H #30 capsule 11/01/19 Unknown Rx Ibuprofen [Motrin 600 MG tab] 600 mg PO Q8H PRN #30 tablet 11/01/19 Unknown Rx Butalb/Acetamin/Caff 50-325-40 1 - 2 tab PO Q6HR PRN #12 tab 01/01/20 Unknown Rx [Fioricet 50-325-40] Ibuprofen [Motrin] 600 mg PO Q8H PRN #20 tablet 01/01/[address] [Nikki COELLO] 500 mg PO TID 01/04/20 01/04/20 1 Day Ago History ~01/03/20 Gabapentin [Neurontin] 800 mg PO TID 01/04/20 01/04/20 1 Day Ago History ~01/03/20 clonazePAM [KlonoPIN] 2 mg PO BID 01/04/20 01/04/20 1 Day Ago History ~01/03/20 risperiDONE [RisperDAL] 3 mg PO HS 01/04/20 01/04/20 1 Day Ago History ~01/03/20 Active Meds: Active Medications Clonazepam (Klonopin) 2 mg PO BID [facility] Divalproex Sodium (Mellyakodavid Coello) 500 mg PO TID [facility] Last Admin: 01/05/20 09:46 Dose: 500 mg Documented by: Gabapentin (Gabapentin) 800 mg PO TID [facility] Last Admin: 01/05/20 09:46 Dose: 800 mg Documented by: Ibuprofen (Ibuprofen) 600 mg PO Q8H PRN PRN Reason: Pain , Severe (7-10) Risperidone (Risperdal) 3 mg PO [facility] Mental Status Exam - Vital signs Last Vital Signs Temp 98.0 F 01/05/20 08:25 Pulse 89 01/05/20 08:25 Resp 20 01/05/20 08:25 BP 105/71 01/05/20 08:25 Pulse Ox 98 01/05/20 08:25 Results Result Diagrams: 01/04/20 20:13 01/04/20 20:13 Abnormal lab results 01/04/20 01/04/20 01/04/20 Range/Units 19:42 20:13 20:13 MCV 97 H (84-94) fl MCH 34 H (28-32) pg MCHC 35 H (32-34) % RDW 13.1 L (13.2-15.2) % [place] % (Auto) 10.9 H (0.0-7.3) % [place] # (Auto) 1.1 H (0.0-0.8) K/mm3 Glucose 103 H (75-100) mg/dL Ur Specific [place] 1.046 H (1.003-1.030) Salicylates (2.8-20.0) mg/dL Acetaminophen (10.0-30.0) ug/mL Valproic Acid (50-100) ug/mL 01/04/20 01/04/20 Range/Units 20:13 20:13 MCV (84-94) fl MCH (28-32) pg MCHC (32-34) % RDW (13.2-15.2) % [place] % (Auto) (0.0-7.3) % [place] # (Auto) (0.0-0.8) K/mm3 Glucose (75-100) mg/dL Ur Specific [place] (1.003-1.030) Salicylates < 0.3 L (2.8-20.0) mg/dL Acetaminophen 5.0 L (10.0-30.0) ug/mL Valproic Acid < 2.8 L (50-100) ug/mL All other labs normal. Assessment and Plan - Psychiatric problem (1) Outbursts of explosive behavior Current Visit: Yes Status: Acute
[2020-01-05] MEDS ORDERED: risperiDONE 3 MG TAB PO SCH (22:00)
== END 2020-01-05 16:36 | disposition home or self-care (01) ==
LOC: ED 18:26
DX: R46.89 Other symptoms and signs involving appearance and behavior (principal); R07.89 Other chest pain; Z79.1 Long term (current) use of non-steroidal anti-inflammatories (NSAID); Z79.2 Long term (current) use of antibiotics; Z79.899 Other long term (current) drug therapy
CPT/HCPCS: 36415; 80048; 80164; 80307; 81001; 84484; 85025; 93005; 96372; 99285; J1885; Q0177; 80320; G0480

== ENCOUNTER 2020-01-18 20:32 | Emergency (ER) | payer MEDICAID ==
[2020-01-18 21:03] VITALS: BP 119/68
[2020-01-18 21:47] LABS: Basophils % (Auto) 0.5 % (0.0-1.8); Eosinophils # (Auto) 0.2 K/mm3 (0.0-0.4); Eosinophils % (Auto) 2.7 % (0.0-4.3); Hematocrit 38.4 % (35.5-45.6); Hemoglobin 13.4 gm/dl (11.8-15.2); Lymphocytes # (Auto) 3.8 K/mm3 (1.2-5.4); Lymphocytes % (Auto) 42.5 % (13.4-35.0); Mean Corpuscular HGB Conc 35 % (32-34); Mean Corpuscular Volume 99 fl (84-94); Platelet Count 201 K/mm3 (140-440); Red Cell Distribution Width 13.1 % (13.2-15.2)
--- NOTE | 2020-01-18 22:05 | XRay Report ---
CHEST 2 VIEWS INDICATION / CLINICAL INFORMATION: Left side chest pain x24 hours. COMPARISON: 01/04/20 FINDINGS: SUPPORT DEVICES: None. HEART / MEDIASTINUM: Heart is of normal. PDA embolization coils are unchanged. LUNGS / PLEURA: No significant pulmonary or pleural abnormality. No pneumothorax. ADDITIONAL FINDINGS: No significant additional findings. IMPRESSION: 1. No acute findings. No change. Signer Name: Leti Hercules MD Signed: 01/18/2020 10:00 PM Workstation Name: [id number]
[2020-01-18 22:10] LABS: BUN/Creatinine Ratio 11; Blood Urea Nitrogen 11 mg/dL (9-20); Calcium 9.4 mg/dL (8.4-10.2); Hemolysis Index 5
[2020-01-18] MEDS ORDERED: diphenhydrAMINE 25 MG CAP PO ONE (22:22)
[2020-01-18] MEDS ORDERED: METOCLOPRAMIDE 10 MG TAB PO ONE (22:22)
[2020-01-18] MEDS ORDERED: IBUPROFEN 800 MG TAB PO ONE (22:26)
--- NOTE | 2020-01-18 22:49 | Emergency Department Report ---
ED General Adult HPI - General Chief complaint: Chest Pain Stated complaint: CHEST PAIN/BLOODY STOOL Time Seen by Provider: 01/18/20 22:23 Source: patient, EMS Mode of arrival: Stretcher Limitations: No Limitations - History of Present Illness Initial comments: Patient is a 29-year-old white male who presents for right lateral chest wall pain times 1 day. Patient denies fall injury or trauma. Patient denies shortness of breath, no cough ,no fever, no chills. Patient states history of schizophrenia is adherent to treatment regimen, there is no shortness of breath, dizziness, lightheadedness, nausea vomiting, diaphoresis, back pain. Symptoms are exacerbated by activity and movement. Symptoms are relieved by nothing. Onset/Timin -: days(s) - Related Data Home Medications Medication Instructions Recorded Confirmed Last Taken Divalproex Dr [DepaKOTE DR] 500 mg PO TID 01/04/20 01/04/20 1 Day Ago ~01/03/20 Gabapentin [Neurontin] 800 mg PO TID 01/04/20 01/04/20 1 Day Ago ~01/03/20 clonazePAM [KlonoPIN] 2 mg PO BID 01/04/20 01/04/20 1 Day Ago ~01/03/20 risperiDONE [RisperDAL] 3 mg PO HS 01/04/20 01/04/20 1 Day Ago ~01/03/20 Previous Rx's Medication Instructions Recorded Last Taken Type Clindamycin [Clindamycin CAP] 300 mg PO Q8H #30 capsule 11/01/19 Unknown Rx Ibuprofen [Motrin 600 MG tab] 600 mg PO Q8H PRN #30 tablet 11/01/19 Unknown Rx Butalb/Acetamin/Caff 50-325-40 1 - 2 tab PO Q6HR PRN #12 tab 01/01/20 Unknown Rx [Fioricet 50-325-40] Ibuprofen [Motrin] 600 mg PO Q8H PRN #20 tablet 01/01/20 Unknown Rx Ibuprofen [Motrin 800 MG tab] 800 mg PO Q8HR PRN #30 tablet 01/18/20 Unknown Rx Allergies Allergy/AdvReac Type Severity Reaction Status Date / Time No Known Allergies Allergy Verified 10/19/19 08:50 ED Review of Systems ROS: Stated complaint: CHEST PAIN/BLOODY STOOL Other details as noted in HPI Constitutional: denies: chills, fever Eyes: denies: eye pain, eye discharge, vision change ENT: denies: ear pain, throat pain Respiratory: denies: cough, shortness of breath, wheezing Cardiovascular: chest pain (chest wall pain ). denies: palpitations, dyspnea on exertion, edema Endocrine: no symptoms reported Gastrointestinal: denies: abdominal pain, nausea, vomiting, diarrhea Genitourinary: denies: urgency, dysuria, frequency, hematuria, discharge Musculoskeletal: denies: back pain, joint swelling, arthralgia Skin: denies: rash, lesions Neurological: denies: headache, weakness, paresthesias Psychiatric: denies: anxiety, depression Hematological/Lymphatic: denies: easy bleeding, easy bruising ED Past Medical Hx - Past Medical History Previous Medical History?: Yes Hx Psychiatric Treatment: Yes (schizophrenia) - Surgical History Past Surgical History?: No - Social History Smoking Status: Current Every Day Smoker Substance Use Type: None - Medications Home Medications: Home Medications Medication Instructions Recorded Confirmed Last Taken Type Clindamycin [Clindamycin CAP] 300 mg PO Q8H #30 capsule 11/01/19 Unknown Rx Ibuprofen [Motrin 600 MG tab] 600 mg PO Q8H PRN #30 tablet 11/01/19 Unknown Rx Butalb/Acetamin/Caff 50-325-40 1 - 2 tab PO Q6HR PRN #12 tab 01/01/20 Unknown Rx [Fioricet 50-325-40] Ibuprofen [Motrin] 600 mg PO Q8H PRN #20 tablet 01/01/[address] [Nikki RECINOS] 500 mg PO TID 01/04/20 01/04/20 1 Day Ago History ~01/03/20 Gabapentin [Neurontin] 800 mg PO TID 01/04/20 01/04/20 1 Day Ago History ~01/03/20 clonazePAM [KlonoPIN] 2 mg PO BID 01/04/20 01/04/20 1 Day Ago History ~01/03/20 risperiDONE [RisperDAL] 3 mg PO HS 01/04/20 01/04/20 1 Day Ago History ~01/03/20 Ibuprofen [Motrin 800 MG tab] 800 mg PO Q8HR PRN #30 tablet 01/18/20 Unknown Rx ED Physical Exam - General Limitations: No Limitations General appearance: alert, in no apparent distress - Head Head exam: Present: atraumatic, normocephalic - Eye Eye exam: Present: normal appearance - ENT ENT exam: Present: mucous membranes moist - Neck Neck exam: Present: normal inspection, full ROM. Absent: tenderness - Respiratory Respiratory exam: Present: normal lung sounds bilaterally, chest wall tenderness (right anterior chest wall reproducible to palpation). Absent: respiratory distress, wheezes, stridor - Cardiovascular Cardiovascular Exam: Present: regular rate, normal rhythm, normal heart sounds. Absent: systolic murmur, diastolic murmur, rubs, gallop - GI/Abdominal GI/Abdominal exam: Present: soft, normal bowel sounds. Absent: distended, tenderness, guarding, rebound, rigid, bruit, hernia - Rectal Rectal exam: Present: deferred - Extremities Exam Extremities exam: Present: normal inspection - Back Exam Back exam: Present: normal inspection. Absent: full ROM, tenderness, CVA tenderness (R), CVA tenderness (L), vertebral tenderness - Neurological Exam Neurological exam: Present: alert, oriented X3, CN II-XII intact, normal gait - Psychiatric Psychiatric exam: Present: normal affect, normal mood. Absent: anxious, homicidal ideation, suicidal ideation - Skin Skin exam: Present: warm, dry, intact, normal color. Absent: rash ED Course Vital Signs 01/18/20 20:59 Temperature 98.7 F Pulse Rate 96 H Respiratory 18 Rate Blood Pressure 119/68 O2 Sat by Pulse 95 Oximetry ED Medical Decision Making - Lab Data Result diagrams: 01/18/20 21:30 01/18/20 21:30 Labs 01/18/20 01/18/20 21:30 21:30 WBC 9.0 RBC 3.90 Hgb 13.4 Hct 38.4 MCV 99 H MCH 34 H MCHC 35 H RDW 13.1 L Plt Count 201 Lymph % (Auto) 42.5 H [place] % (Auto) 11.0 H Eos % (Auto) 2.7 Baso % (Auto) 0.5 Lymph # (Auto) 3.8 [place] # (Auto) 1.0 H Eos # (Auto) 0.2 Baso # (Auto) 0.0 Seg Neutrophils % 43.3 Seg Neutrophils # 3.9 Sodium 144 Potassium 3.9 Chloride 107.8 H Carbon Dioxide 25 Anion Gap 15 BUN 11 Creatinine 1.0 Estimated GFR > 60 BUN/Creatinine Ratio 11 Glucose 90 Calcium 9.4 - EKG Data EKG shows normal: sinus rhythm Rate: normal - EKG Data When compared to previous EKG there are: previous EKG unavailable Interpretation: normal EKG (normal ekg no ST Elevated RI interp by ED Attending) - Radiology Data Radiology results: report reviewed, image reviewed Findings Reporting MD: Sharif Hercules Dictation Time: January 18, 2020 21:00 Perinatal Specialist: Not available Recreation Therapy Director Date: CHEST 2 VIEWS INDICATION / CLINICAL INFORMATION: Left side chest pain x24 hours. COMPARISON: 01/04/20 FINDINGS: SUPPORT DEVICES: None. HEART / MEDIASTINUM: Heart is of normal. PDA embolization coils are unchanged. LUNGS / PLEURA: No significant pulmonary or pleural abnormality. No pneumothorax. ADDITIONAL FINDINGS: No significant additional findings. IMPRESSION: 1. No acute findings. No change. Signer Name: Sharif Hercules MD Signed: 01/18/2020 9:00 PM Workstation Name: [id number] - Medical Decision Making This is chest wall pain no cough no fever no shortness of breath no wheezing no stridor. plan DC to home with prescription for NSAID follow-up with primary care doctor in 2 to 3 days. Patient verbalized agreement and understanding with sharif ischarge plan Critical care attestation.: If time is entered above; I have spent that time in minutes in the direct care of this critically ill patient, excluding procedure time. ED Disposition Clinical Impression: Chest wall pain Disposition: DC-01 TO HOME OR SELFCARE Is pt being admited?: No Does the pt Need Aspirin: No Condition: Stable Instructions: Chest Pain (ED) Prescriptions: Ibuprofen [Motrin 800 MG tab] 800 mg PO Q8HR PRN #30 tablet PRN Reason: pain Referrals: PRIMARY CARE, [Primary Care Provider] - 3-5 Days Forms: Work/School Release Form(ED) Time of Disposition: 22:51
== END 2020-01-18 23:00 | disposition home or self-care (01) ==
LOC: ED 20:32
DX: R07.89 Other chest pain (principal); I10 Essential (primary) hypertension; F17.200 Nicotine dependence, unspecified, uncomplicated; Z79.899 Other long term (current) drug therapy
CPT/HCPCS: 36415; 71046; 80048; 85025; 93005

== ENCOUNTER 2020-01-30 20:16 | Emergency (ER) | payer MEDICAID ==
--- NOTE | 2020-01-30 22:51 | XRay Report ---
CHEST PA AND LATERAL VIEWS INDICATION: Chest Pain. COMPARISON: 01/18/2020 FINDINGS: Support devices: None. Heart: Within normal limits. Lungs/Pleura: No acute pulmonary or pleural findings. PVA embolization coils are again noted, unchanged. IMPRESSION: 1. No acute findings. Signer Name: Alejandro Snider MD Signed: 01/30/2020 10:47 PM Workstation Name: [id number]
[2020-01-31] MEDS ORDERED: KETOROLAC 30 MG/1 ML INJ IM ONE (02:32)
--- NOTE | 2020-01-31 02:35 | Emergency Department Report ---
ED Chest Pain HPI - General Chief Complaint: Chest Pain Stated Complaint: CHEST PAIN Time Seen by Provider: 01/31/20 02:26 Source: patient Mode of arrival: Ambulatory Limitations: No Limitations - History of Present Illness Initial Comments: 29-year-old male, history of schizophrenia, presents to ED from [place] with complaint of chest pain. Patient states he was awakened from sleep with chest pain and heart racing. Patient states it lasted for approximately 1 hour. States it felt like needles. Patient denies any pain at this time, states pain is currently resolved. Patient denies any associated shortness of breath, nausea or vomiting, cough or fever, leg pain or swelling. He denies any drug use. Patient reports some anxiety. He does not appear anxious. MD Complaint: chest pain -: This evening Onset: awoke with symptoms Pain Location: left chest Pain Radiation: none Severity: mild Quality: other ("Like needles") Consistency: now resolved Improves With: nothing Worsens With: nothing re: denies: nausea, vomting, diaphoresis, dyspnea Other Symptoms: denies: cough, fever, leg swelling - Related Data Home Medications Medication Instructions Recorded Confirmed Last Taken Divalproex Dr [Nikki RECINOS] 500 mg PO TID 01/04/20 01/04/20 1 Day Ago ~01/03/20 Gabapentin [Neurontin] 800 mg PO TID 01/04/20 01/04/20 1 Day Ago ~01/03/20 clonazePAM [KlonoPIN] 2 mg PO BID 01/04/20 01/04/20 1 Day Ago ~01/03/20 risperiDONE [RisperDAL] 3 mg PO HS 01/04/20 01/04/20 1 Day Ago ~01/03/20 Previous Rx's Medication Instructions Recorded Last Taken Type Clindamycin [Clindamycin CAP] 300 mg PO Q8H #30 capsule 11/01/19 Unknown Rx Ibuprofen [Motrin 600 MG tab] 600 mg PO Q8H PRN #30 tablet 11/01/19 Unknown Rx Butalb/Acetamin/Caff 50-325-40 1 - 2 tab PO Q6HR PRN #12 tab 01/01/20 Unknown Rx [Fioricet 50-325-40] Ibuprofen [Motrin] 600 mg PO Q8H PRN #20 tablet 01/01/20 Unknown Rx Ibuprofen [Motrin 800 MG tab] 800 mg PO Q8HR PRN #30 tablet 01/18/20 Unknown Rx Allergies Allergy/AdvReac Type Severity Reaction Status Date / Time No Known Allergies Allergy Verified 10/19/19 08:50 Heart Score - HEART Score History: Slightly suspicious EKG: Normal Age: < 45 Risk factors: No known risk factors Troponin: < normal limit HEART Score: 0 ED Review of Systems ROS: Stated complaint: CHEST PAIN Other details as noted in HPI Comment: All other systems reviewed and negative Constitutional: denies: fever Respiratory: denies: cough, shortness of breath Cardiovascular: chest pain, palpitations Musculoskeletal: other (Denies leg pain or swelling) Psychiatric: anxiety. denies: homicidal thoughts, suicidal thoughts ED Past Medical Hx - Past Medical History Hx Psychiatric Treatment: Yes (schizophrenia) - Social History Smoking Status: Current Every Day Smoker Substance Use Type: Methamphetamines - Medications Home Medications: Home Medications Medication Instructions Recorded Confirmed Last Taken Type Clindamycin [Clindamycin CAP] 300 mg PO Q8H #30 capsule 11/01/19 Unknown Rx Ibuprofen [Motrin 600 MG tab] 600 mg PO Q8H PRN #30 tablet 11/01/19 Unknown Rx Butalb/Acetamin/Caff 50-325-40 1 - 2 tab PO Q6HR PRN #12 tab 01/01/20 Unknown Rx [Fioricet 50-325-40] Ibuprofen [Motrin] 600 mg PO Q8H PRN #20 tablet 01/01/[address] [DepaKOTE DR] 500 mg PO TID 01/04/20 01/04/20 1 Day Ago History ~01/03/20 Gabapentin [Neurontin] 800 mg PO TID 01/04/20 01/04/20 1 Day Ago History ~01/03/20 clonazePAM [KlonoPIN] 2 mg PO BID 01/04/20 01/04/20 1 Day Ago History ~01/03/20 risperiDONE [RisperDAL] 3 mg PO HS 01/04/20 01/04/20 1 Day Ago History ~01/03/20 Ibuprofen [Motrin 800 MG tab] 800 mg PO Q8HR PRN #30 tablet 01/18/20 Unknown Rx ED Physical Exam - General Limitations: No Limitations General appearance: alert, in no apparent distress - Head Head exam: Present: atraumatic, normocephalic - Eye Eye exam: Present: normal appearance, EOMI - ENT ENT exam: Present: mucous membranes moist - Neck Neck exam: Present: normal inspection - Respiratory Respiratory exam: Present: normal lung sounds bilaterally. Absent: respiratory distress - Cardiovascular Cardiovascular Exam: Present: regular rate, normal rhythm - GI/Abdominal GI/Abdominal exam: Present: soft. Absent: distended, tenderness - Extremities Exam Extremities exam: Present: normal inspection. Absent: pedal edema, calf tenderness - Neurological Exam Neurological exam: Present: alert, oriented X3 - Psychiatric Psychiatric exam: Present: flat affect - Skin Skin exam: Present: warm, dry, intact, normal color ED Course Vital Signs 01/30/20 01/31/20 01/31/20 21:50 02:00 02:49 Temperature 98.5 F Pulse Rate 91 H 91 H 98 H Respiratory 18 15 17 Rate Blood Pressure 108/70 Blood Pressure 117/78 122/81 [Right] O2 Sat by Pulse 98 96 97 Oximetry ED Medical Decision Making - Lab Data Result diagrams: 01/31/20 02:43 01/31/20 02:43 - EKG Data -: EKG Interpreted by Mi EKG shows normal: sinus rhythm, axis, intervals, QRS complexes, ST-T waves Rate: normal - EKG Data Interpretation: no acute changes - Radiology Data Radiology results: report reviewed, image reviewed - Medical Decision Making 27-year-old male presents to ED reporting chest pain and anxiety. Patient reports chest pain currently resolved. EKG, chest x-ray, labs unremarkable. Vitals are stable. Will discharge at this time. Outpatient follow-up advised. Return precautions given. - Differential Diagnosis Anxiety, chest wall pain, ACS Critical care attestation.: If time is entered above; I have spent that time in minutes in the direct care of this critically ill patient, excluding procedure time. ED Disposition Clinical Impression: Chest pain, Anxiety Disposition: - TO HOME OR SELFCARE Is pt being admited?: No Condition: Stable Instructions: Nonspecific Chest Pain, Adult, Chest Pain (ED) Referrals: PRIMARY CARE, [Primary Care Provider] - 3-5 Days [facility] [Provider Group] - 3-5 Days Time of Disposition: 03:23
[2020-01-31 02:50] VITALS: BP 122/81
[2020-01-31 03:00] LABS: Basophils # (Auto) 0.1 K/mm3 (0.0-0.1); Basophils % (Auto) 0.5 % (0.0-1.8); Eosinophils # (Auto) 0.5 K/mm3 (0.0-0.4); Eosinophils % (Auto) 4.7 % (0.0-4.3); Hematocrit 38.9 % (35.5-45.6); Hemoglobin 13.5 gm/dl (11.8-15.2); Lymphocytes % (Auto) 36.2 % (13.4-35.0); Mean Corpuscular HGB Conc 35 % (32-34); Mean Corpuscular Volume 98 fl (84-94); Platelet Count 207 K/mm3 (140-440); Red Blood Count 3.96 M/mm3 (3.65-5.03); Red Cell Distribution Width 13.4 % (13.2-15.2)
[2020-01-31 03:16] LABS: BUN/Creatinine Ratio 9; Blood Urea Nitrogen 9 mg/dL (9-20); Calcium 9.2 mg/dL (8.4-10.2); Hemolysis Index 17
== END 2020-01-31 03:30 | disposition home or self-care (01) ==
LOC: ED 20:16
DX: F41.9 Anxiety disorder, unspecified (principal); R07.9 Chest pain, unspecified; F25.9 Schizoaffective disorder, unspecified; F17.200 Nicotine dependence, unspecified, uncomplicated; F12.90 Cannabis use, unspecified, uncomplicated; Z79.899 Other long term (current) drug therapy
CPT/HCPCS: 36415; 71046; 80048; 84484; 85025; 93005; 96372; 99283; J1885

== ENCOUNTER 2020-02-16 15:57 | Emergency (ER) | payer MEDICAID ==
[2020-02-16 16:06] VITALS: BP 126/81
--- NOTE | 2020-02-16 16:43 | Event Note ---
ED Screening Note Date of service: 02/16/20 Time: 16:43 ED Screening Note: Patient reports he saw blood from his rectum today. This initial assessment/diagnostic orders/clinical plan/treatment(s) is/are subject to change based on patients health status, clinical progression and re- assessment by fellow clinical providers in the ED. Further treatment and workup at subsequent clinical providers discretion. Patient/guardian urged not to elope from the ED as their condition may be serious if not clinically assessed and managed. Initial orders include:
[2020-02-16 17:12] LABS: Mean Corpuscular HGB Conc 36 % (32-34); Mean Corpuscular Volume 98 fl (84-94); Platelet Count 178 K/mm3 (140-440); Red Blood Count 3.84 M/mm3 (3.65-5.03); Red Cell Distribution Width 13.3 % (13.2-15.2)
[2020-02-16 17:35] LABS: Hemoglobin 13.7 gm/dl (11.8-15.2)
[2020-02-16 17:36] LABS: Hematocrit 37.6 % (35.5-45.6)
[2020-02-16] MEDS ORDERED: IBUPROFEN 600 MG TAB PO ONE (20:36)
--- NOTE | 2020-02-16 21:08 | Emergency Department Report ---
ED General Adult HPI - General Chief complaint: GI Bleed Stated complaint: BLOODY STOOL Time Seen by Provider: 02/16/20 19:36 Source: patient Mode of arrival: Ambulatory Limitations: No Limitations - History of Present Illness Initial comments: 29-year-old male was emerge department complaining of having a bowel movement and noticed some blood on his tissue when he wiped there was associated with a mild burning-like pain around the rectal area. Radiation: non-radiation Severity scale (0 -10): 7 Quality: aching Worsens with: other (Worsens with bowel movements) Associated Symptoms: denies other symptoms. denies: cough, diaphoresis, loss of appetite, malaise, nausea/vomiting, syncope Treatments Prior to Arrival: none - Related Data Home Medications Medication Instructions Recorded Confirmed Last Taken Divalproex Dr [DepaKOTE DR] 500 mg PO TID 01/04/20 01/04/20 1 Day Ago ~01/03/20 Gabapentin [Neurontin] 800 mg PO TID 01/04/20 01/04/20 1 Day Ago ~01/03/20 clonazePAM [KlonoPIN] 2 mg PO BID 01/04/20 01/04/20 1 Day Ago ~01/03/20 risperiDONE [RisperDAL] 3 mg PO HS 01/04/20 01/04/20 1 Day Ago ~01/03/20 Previous Rx's Medication Instructions Recorded Last Taken Type Clindamycin [Clindamycin CAP] 300 mg PO Q8H #30 capsule 11/01/19 Unknown Rx Ibuprofen [Motrin 600 MG tab] 600 mg PO Q8H PRN #30 tablet 11/01/19 Unknown Rx Butalb/Acetamin/Caff 50-325-40 1 - 2 tab PO Q6HR PRN #12 tab 01/01/20 Unknown Rx [Fioricet 50-325-40] Ibuprofen [Motrin] 600 mg PO Q8H PRN #20 tablet 01/01/20 Unknown Rx Ibuprofen [Motrin 800 MG tab] 800 mg PO Q8HR PRN #30 tablet 01/18/20 Unknown Rx Allergies Allergy/AdvReac Type Severity Reaction Status Date / Time No Known Allergies Allergy Verified 02/16/20 16:04 ED Review of Systems ROS: Stated complaint: BLOODY STOOL Other details as noted in HPI Comment: All other systems reviewed and negative Musculoskeletal: arthralgia, myalgia (To the right arm chronic off and on for several weeks) ED Past Medical Hx - Past Medical History Hx Psychiatric Treatment: Yes (schizophrenia) - Social History Smoking Status: Current Every Day Smoker Substance Use Type: Methamphetamines - Medications Home Medications: Home Medications Medication Instructions Recorded Confirmed Last Taken Type Clindamycin [Clindamycin CAP] 300 mg PO Q8H #30 capsule 11/01/19 Unknown Rx Ibuprofen [Motrin 600 MG tab] 600 mg PO Q8H PRN #30 tablet 11/01/19 Unknown Rx Butalb/Acetamin/Caff 50-325-40 1 - 2 tab PO Q6HR PRN #12 tab 01/01/20 Unknown Rx [Fioricet 50-325-40] Ibuprofen [Motrin] 600 mg PO Q8H PRN #20 tablet 01/01/[address] [DepaKOTE DR] 500 mg PO TID 01/04/20 01/04/20 1 Day Ago History ~01/03/20 Gabapentin [Neurontin] 800 mg PO TID 01/04/20 01/04/20 1 Day Ago History ~01/03/20 clonazePAM [KlonoPIN] 2 mg PO BID 01/04/20 01/04/20 1 Day Ago History ~01/03/20 risperiDONE [RisperDAL] 3 mg PO HS 01/04/20 01/04/20 1 Day Ago History ~01/03/20 Ibuprofen [Motrin 800 MG tab] 800 mg PO Q8HR PRN #30 tablet 01/18/20 Unknown Rx ED Physical Exam - General Limitations: No Limitations General appearance: alert, in no apparent distress - Head Head exam: Present: atraumatic, normocephalic - Eye Eye exam: Present: normal appearance, PERRL, EOMI - ENT ENT exam: Present: mucous membranes moist - Neck Neck exam: Present: normal inspection - Respiratory Respiratory exam: Present: normal lung sounds bilaterally. Absent: respiratory distress, wheezes, chest wall tenderness, accessory muscle use - Cardiovascular Cardiovascular Exam: Present: regular rate, normal rhythm. Absent: systolic murmur, diastolic murmur, rubs, gallop - GI/Abdominal GI/Abdominal exam: Present: soft, normal bowel sounds - Rectal Rectal exam: Present: deferred, normal inspection, other (Fissures noted no external hemorrhoids were visualized. May have some an evolving internal hemorrhoid with visualization and palpation on examination at the 5:00 marked). Absent: mass, tenderness - exam: Present: normal inspection External exam: Present: normal external exam - Extremities Exam Extremities exam: Present: normal inspection, full ROM, normal capillary refill - Back Exam Back exam: Present: normal inspection. Absent: CVA tenderness (R), CVA tenderness (L), muscle spasm - Neurological Exam Neurological exam: Present: alert, oriented X3, CN II-XII intact, normal gait - Psychiatric Psychiatric exam: Present: normal affect, normal mood. Absent: depressed, anxious, flat affect - Skin Skin exam: Present: warm, dry, intact, normal color. Absent: rash ED Course Vital Signs 02/16/20 02/16/20 16:05 20:50 Temperature 98.4 F Pulse Rate 88 Respiratory 16 18 Rate Blood Pressure 126/81 O2 Sat by Pulse 98 Oximetry ED Medical Decision Making - Lab Data Result diagrams: 02/16/20 16:52 - Medical Decision Making 29-year-old male was just emerged department with scant rectal bleeding on wiping from examination. There is no melena on examination no gross bleeding noted there was some fissures noted and what appeared to be an evolving internal hemorrhoid that met with the rectal opening. No abscess is appreciated no cellulitis. After learning he had no external hemorrhoids appear to be more concerned about receiving pain medication for his chronic right arm pain. The patient is oriented to person, place, and time, has the capacity to make decisions regarding the medical care offered. The patient speaks coherently and exhibits no evidence of having an altered level of consciousness or alcohol or drug intoxication to a point that would impair judgment. They respond knowingly to questions about recommended treatment and alternate treatments including no further testing or treatment; participate in diagnostic and treatment decisions by means of rational thought processes; and understand the items of minimum basic medical treatment information with respect to that treatment (the nature and seriousness of the illness, the nature of the treatment, the probable degree and duration of any benefits and risks of any medical intervention that is being recommended, and the consequences of lack of treatment, and the nature, risks, and benefits of any reasonable alternatives). I have reviewed the relevant issues with the patient. They are aware of the suspected diagnosis suggested by screening exam possible GI bleed based upon the initiated medical screening exam. The patient acknowledges understanding of the reasons for recommendations regarding medical treatment, medical testing, and further monitoring and observation. The recommended medical care being refused has been discussed with the patient and is [_]. The risks of refusing recommended care that were disclosed and acknowledged by the patient are loss of current lifestyle, permanent mental impairment, and . The patient understands the relevant information of the nature of their medical condition, as well as the risks, benefits, and treatment alternatives (including non-treatment), consequences of refusing care, and can competently communicate a rational explanation about their choice of care options. [Discharge instructions were provided to the patient.] The patient understands they are welcome to return to the hospital at any time to receive the recommended care or any other care at any time, regardless of their ability to pay for such care. Critical care attestation.: If time is entered above; I have spent that time in minutes in the direct care of this critically ill patient, excluding procedure time. ED Disposition Clinical Impression: Acute anal fissure, Chronic pain Disposition: DC-01 TO HOME OR SELFCARE Is pt being admited?: No Does the pt Need Aspirin: No Condition: Stable Instructions: Anal Fissure, Adult Referrals: PRIMARY CARE, [Primary Care Provider] - 3-5 Days [facility] [Provider Group] - 3-5 Days
== END 2020-02-16 21:35 | disposition left against medical advice (07) ==
LOC: ED 15:57
DX: K60.0 Acute anal fissure (principal); G89.29 Other chronic pain; F25.0 Schizoaffective disorder, bipolar type; F15.90 Other stimulant use, unspecified, uncomplicated; F17.200 Nicotine dependence, unspecified, uncomplicated; Z79.899 Other long term (current) drug therapy
CPT/HCPCS: 36415; 85027

== ENCOUNTER 2020-02-21 19:47 | Emergency (ER) | payer MEDICAID ==
[2020-02-21] MEDS ORDERED: ALUM-MAG HYDROXIDE-SIMETHICONE 200-200-20MG/5ML ORAL LIQD 30 ML PO ONE (21:43)
[2020-02-21] MEDS ORDERED: LIDOCAINE VISCOUS 2% 15 ML ORAL LIQD PO ONE (21:43)
--- NOTE | 2020-02-21 21:43 | Emergency Department Report ---
ED Chest Pain HPI - General Chief Complaint: Psych Stated Complaint: Chest Pain, ETOH Time Seen by Provider: 02/21/20 21:32 Source: EMS Mode of arrival: Ambulatory Limitations: No Limitations - History of Present Illness Initial Comments: This is a 29-year-old male presents to the emergency department via EMS from home with a complaint of alcohol use and some chest pain. Patient has a history of acid reflux and says that this feels similar. He complains of some midsternal to left-sided burning sensation that has been going on since this morning. He denies any fever, nausea, vomiting, back pain, shortness of breath, lower extremity swelling or diaphoresis. Patient denies drinking every day or known alcohol dependence. He has not taken anything for symptoms prior to presentation. He is a tobacco smoker but denies any illicit drug use. He denies any past medical history but has a psychiatric history of schizophrenia. The patient apparently said something to EMS about suicidal ideations without a plan. However, the patient says that the were mistaken and he denies any suicidal or homicidal ideations. He denies any hallucinations. No recent travel or sick contacts at home. No known exposure to anyone with COVID-19. - Related Data Home Medications Medication Instructions Recorded Confirmed Last Taken Divalproex Dr [Nikki RECINOS] 500 mg PO TID 01/04/20 01/04/20 1 Day Ago ~01/03/20 Gabapentin [Neurontin] 800 mg PO TID 01/04/20 01/04/20 1 Day Ago ~01/03/20 clonazePAM [KlonoPIN] 2 mg PO BID 01/04/20 01/04/20 1 Day Ago ~01/03/20 risperiDONE [RisperDAL] 3 mg PO HS 01/04/20 01/04/20 1 Day Ago ~01/03/20 Previous Rx's Medication Instructions Recorded Last Taken Type Clindamycin [Clindamycin CAP] 300 mg PO Q8H #30 capsule 11/01/19 Unknown Rx Ibuprofen [Motrin 600 MG tab] 600 mg PO Q8H PRN #30 tablet 11/01/19 Unknown Rx Butalb/Acetamin/Caff 50-325-40 1 - 2 tab PO Q6HR PRN #12 tab 01/01/20 Unknown Rx [Fioricet 50-325-40] Ibuprofen [Motrin] 600 mg PO Q8H PRN #20 tablet 01/01/20 Unknown Rx Ibuprofen [Motrin 800 MG tab] 800 mg PO Q8HR PRN #30 tablet 01/18/20 Unknown Rx Allergies Allergy/AdvReac Type Severity Reaction Status Date / Time No Known Allergies Allergy Verified 02/16/20 16:04 Heart Score - HEART Score History: Slightly suspicious EKG: Normal Age: < 45 Risk factors: 1-2 risk factors Troponin: < normal limit HEART Score: 1 - Critical Actions Critical Actions: 0-3 pts:0.9-1.7%risk of adverse cardiac event.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 denies: palpitations, edema Gastrointestinal: denies: abdominal pain, vomiting Genitourinary: denies: dysuria, discharge Musculoskeletal: denies: back pain, arthralgia Skin: denies: rash, lesions Neurological: denies: headache, weakness Psychiatric: denies: auditory hallucinations, visual hallucinations, homicidal thoughts, suicidal thoughts ED Past Medical Hx - Past Medical History Previous Medical History?: Yes Hx Psychiatric Treatment: Yes (schizophrenia) - Social History Smoking Status: Never Smoker Substance Use Type: Alcohol - Medications Home Medications: Home Medications Medication Instructions Recorded Confirmed Last Taken Type Clindamycin [Clindamycin CAP] 300 mg PO Q8H #30 capsule 11/01/19 Unknown Rx Ibuprofen [Motrin 600 MG tab] 600 mg PO Q8H PRN #30 tablet 11/01/19 Unknown Rx Butalb/Acetamin/Caff 50-325-40 1 - 2 tab PO Q6HR PRN #12 tab 01/01/20 Unknown Rx [Fioricet 50-325-40] Ibuprofen [Motrin] 600 mg PO Q8H PRN #20 tablet 01/01/[address] [DepaKOTE DR] 500 mg PO TID 01/04/20 01/04/20 1 Day Ago History ~01/03/20 Gabapentin [Neurontin] 800 mg PO TID 01/04/20 01/04/20 1 Day Ago History ~01/03/20 clonazePAM [KlonoPIN] 2 mg PO BID 01/04/20 01/04/20 1 Day Ago History ~01/03/20 risperiDONE [RisperDAL] 3 mg PO HS 01/04/20 01/04/20 1 Day Ago History ~01/03/20 Ibuprofen [Motrin 800 MG tab] 800 mg PO Q8HR PRN #30 tablet 01/18/20 Unknown Rx ED Physical Exam - General Limitations: No Limitations - Other Other exam information: GENERAL: The patient is well-developed well-nourished. HENT: Normocephalic. Atraumatic. Patient has moist mucous membranes. EYES: Extraocular motions are intact. NECK: Supple. Trachea is midline. CHEST/LUNGS: Clear to auscultation. There is no respiratory distress noted. HEART/CARDIOVASCULAR: Regular. There is no tachycardia. There is no murmur. ABDOMEN: Abdomen is soft, nontender. Patient has normal bowel sounds. SKIN: Skin is warm and dry. NEURO: The patient is awake, alert, and oriented. The patient is cooperative. The patient has no focal neurologic deficits. Normal speech. MUSCULOSKELETAL: There is no tenderness or deformity. There is no limitation range of motion. ED Course Vital Signs 02/21/20 20:11 Temperature 98.3 F Pulse Rate 84 Respiratory 18 Rate Blood Pressure 137/79 O2 Sat by Pulse 98 Oximetry - Reevaluation(s) Reevaluation #1: 02/21/20 22:45 The patient was seen by the psychiatric health promotion manager, Michelle, who was able to obtain collateral information from the patient's guardian/nail mill worker. Apparently the patient was making suicidal threats while intoxicated earlier this evening. The patient will be made a 1013. Reevaluation #3: 02/21/20 23:09 Lab Results 02/21/20 02/21/20 02/21/20 Range/Units 21:39 21:39 21:39 WBC 7.3 (4.5-11.0) K/mm3 RBC 4.01 (3.65-5.03) M/mm3 Hgb 13.9 (11.8-15.2) gm/dl Hct 39.4 (35.5-45.6) % MCV 98 H (84-94) fl MCH 35 H (28-32) pg MCHC 35 H (32-34) % RDW 13.3 (13.2-15.2) % Plt Count 181 (140-440) K/mm3 Lymph % (Auto) 51.0 H (13.4-35.0) % [place] % (Auto) 8.1 H (0.0-7.3) % Eos % (Auto) 4.9 H (0.0-4.3) % Baso % (Auto) 0.7 (0.0-1.8) % Lymph # (Auto) 3.7 (1.2-5.4) K/mm3 [place] # (Auto) 0.6 (0.0-0.8) K/mm3 Eos # (Auto) 0.4 (0.0-0.4) K/mm3 Baso # (Auto) 0.1 (0.0-0.1) K/mm3 Seg Neutrophils % 35.3 L (40.0-70.0) % Seg Neutrophils # 2.6 (1.8-7.7) K/mm3 Sodium 138 (137-145) mmol/L Potassium 4.1 (3.6-5.0) mmol/L Chloride 104.1 (98-107) mmol/L Carbon Dioxide 19 L (22-30) mmol/L Anion Gap 19 mmol/L BUN 9 (9-20) mg/dL Creatinine 0.9 (0.8-1.3) mg/dL Estimated GFR > 60 ml/min BUN/Creatinine Ratio 10 % Glucose 100 (75-100) mg/dL Calcium 9.6 (8.4-10.2) mg/dL Total Bilirubin < 0.20 (0.1-1.2) mg/dL AST 24 (5-40) units/L ALT 23 (7-56) units/L Alkaline Phosphatase 72 (35-129) units/L Troponin T (0.00-0.029) ng/mL Total Protein 6.8 (6.3-8.2) g/dL Albumin 4.3 (3.9-5) g/dL Albumin/Globulin Ratio 1.7 % Urine Color (Yellow) Urine Turbidity (Clear) Urine pH (5.0-7.0) Ur Specific [place] (1.003-1.030) Urine Protein (Negative) mg/dL Urine Glucose (UA) (Negative) mg/dL Urine Ketones (Negative) mg/dL Urine Blood (Negative) Urine Nitrite (Negative) Urine Bilirubin (Negative) Urine Urobilinogen (<2.0) mg/dL Ur Leukocyte Esterase (Negative) Urine WBC (Auto) (0.0-6.0) /HPF Urine RBC (Auto) (0.0-6.0) /HPF U Epithel Cells (Auto) (0-13.0) /HPF Urine Opiates Screen Urine Methadone Screen Ur Barbiturates Screen Ur Phencyclidine Scrn Ur Amphetamines Screen U Benzodiazepines Scrn Urine Cocaine Screen U Marijuana (THC) Screen Drugs of Abuse Note Plasma/Serum Alcohol 0.08 H (0-0.07) % 02/21/20 02/21/20 02/21/20 Range/Units 21:43 22:07 22:07 WBC (4.5-11.0) K/mm3 RBC (3.65-5.03) M/mm3 Hgb (11.8-15.2) gm/dl Hct (35.5-45.6) % MCV (84-94) fl MCH (28-32) pg MCHC (32-34) % RDW (13.2-15.2) % Plt Count (140-440) K/mm3 Lymph % (Auto) (13.4-35.0) % [place] % (Auto) (0.0-7.3) % Eos % (Auto) (0.0-4.3) % Baso % (Auto) (0.0-1.8) % Lymph # (Auto) (1.2-5.4) K/mm3 [place] # (Auto) (0.0-0.8) K/mm3 Eos # (Auto) (0.0-0.4) K/mm3 Baso # (Auto) (0.0-0.1) K/mm3 Seg Neutrophils % (40.0-70.0) % Seg Neutrophils # (1.8-7.7) K/mm3 Sodium (137-145) mmol/L Potassium (3.6-5.0) mmol/L Chloride (98-107) mmol/L Carbon Dioxide (22-30) mmol/L Anion Gap mmol/L BUN (9-20) mg/dL Creatinine (0.8-1.3) mg/dL Estimated GFR ml/min BUN/Creatinine Ratio % Glucose (75-100) mg/dL Calcium (8.4-10.2) mg/dL Total Bilirubin (0.1-1.2) mg/dL AST (5-40) units/L ALT (7-56) units/L Alkaline Phosphatase (35-129) units/L Troponin T < 0.010 (0.00-0.029) ng/mL Total Protein (6.3-8.2) g/dL Albumin (3.9-5) g/dL Albumin/Globulin Ratio % Urine Color Colorless (Yellow) Urine Turbidity Clear (Clear) Urine pH 7.0 (5.0-7.0) Ur Specific [place] 1.002 L (1.003-1.030) Urine Protein <15 mg/dl (Negative) mg/dL Urine Glucose (UA) Neg (Negative) mg/dL Urine Ketones Neg (Negative) mg/dL Urine Blood Neg (Negative) Urine Nitrite Neg (Negative) Urine Bilirubin Neg (Negative) Urine Urobilinogen < 2.0 (<2.0) mg/dL Ur Leukocyte Esterase Neg (Negative) Urine WBC (Auto) 1.0 (0.0-6.0) /HPF Urine RBC (Auto) < 1.0 (0.0-6.0) /HPF U Epithel Cells (Auto) < 1.0 (0-13.0) /HPF Urine Opiates Screen Presumptive negative Urine Methadone Screen Presumptive negative Ur Barbiturates Screen Presumptive negative Ur Phencyclidine Scrn Presumptive negative Ur Amphetamines Screen Presumptive negative U Benzodiazepines Scrn Presumptive negative Urine Cocaine Screen Presumptive negative U Marijuana (THC) Screen Presumptive negative Drugs of Abuse Note Disclamer Plasma/Serum Alcohol (0-0.07) % ALBERTO score - Alberto Score Age > 65: (0) No Aspirin use within the Past 7 Days: (0) No 3 or more CAD Risk Factors: (0) No 2 or more Angina events in past 24 hrs: (0) No Known CAD with more than 50% Stenosis: (0) No Elevated Cardiac Markers: (0) No ST Deviation Greater than 0.5mm: (0) No ALBERTO Score: 0 ED Medical Decision Making - Lab Data Result diagrams: 02/21/20 21:39 02/21/20 21:39 - EKG Data -: EKG Interpreted by Me EKG shows normal: sinus rhythm, axis (Right axis deviation), intervals, QRS complexes (RVH), ST-T waves Rate: normal - EKG Data When compared to previous EKG there are: no significant change Interpretation: unchanged when compared t (01/30/20) - Radiology Data Radiology results: image reviewed interpreted by me: Chest x-ray does not show any acute process. There are no pleural effusions, obvious pneumonia and there is no pneumothorax. No significant cardiomegaly. - Medical Decision Making The patient's complaint to me was some midsternal burning chest discomfort that he felt could be related to acid reflux. He also admits to drinking alcohol this evening. Initially there was a report by EMS that the patient was here for suicidal ideations, the patient had refuted this. He had an EKG that did not show any morphology consistent with ST elevation myocardial infarction or any dysrhythmia. Chest x-ray does not show any pneumonia, pleural effusions, pneumothorax, or any other acute process. The patient's labs have been mostly unremarkable including CBC, metabolic panel, negative troponin, urinalysis, but the patient has a blood alcohol level of 0.08. The patient is low on the heart and ALBERTO score. He is low on the Wells score criteria and negative on the pulmo nary embolism rule out criteria. The patient was given a GI cocktail and upon reevaluation he is feeling improved. His complaint of chest discomfort does not appear consistent with ACS or any cardiopulmonary process. Patient was seen by the psychiatric health promotion manager who was able to obtain collateral information from the patient's nail mill worker/guardian who says that the patient was making suicidal threats this evening. For this reason the patient has been made a 1013. Vital signs have been reassuring throughout his ED course thus far. He appears medically cleared for psychiatric placement. Critical Care Time: No Critical care attestation.: If time is entered above; I have spent that time in minutes in the direct care of this critically ill patient, excluding procedure time. ED Disposition Clinical Impression: Suicidal ideations, GERD (gastroesophageal reflux disease), Alcohol use Disposition: DC/TX-65 PSY HOSP/PSY UNIT Is pt being admited?: No Condition: Stable Time of Disposition: 23:12
--- NOTE | 2020-02-21 22:02 | XRay Report ---
CHEST 2 VIEWS INDICATION / CLINICAL INFORMATION: CP. COMPARISON: None available. FINDINGS: SUPPORT DEVICES: None. HEART / MEDIASTINUM: No significant abnormality. LUNGS / PLEURA: No significant pulmonary or pleural abnormality. No pneumothorax. ADDITIONAL FINDINGS: No significant additional findings. IMPRESSION: No acute cardiopulmonary abnormality. Signer Name: Sage Miller MD Signed: 02/21/2020 9:57 PM Workstation Name: [id number]
[2020-02-21 22:05] LABS: Basophils # (Auto) 0.1 K/mm3 (0.0-0.1); Basophils % (Auto) 0.7 % (0.0-1.8); Eosinophils # (Auto) 0.4 K/mm3 (0.0-0.4); Eosinophils % (Auto) 4.9 % (0.0-4.3); Hematocrit 39.4 % (35.5-45.6); Hemoglobin 13.9 gm/dl (11.8-15.2); Lymphocytes # (Auto) 3.7 K/mm3 (1.2-5.4); Mean Corpuscular HGB Conc 35 % (32-34); Mean Corpuscular Volume 98 fl (84-94); Monocytes # (Auto) 0.6 K/mm3 (0.0-0.8); Monocytes % (Auto) 8.1 % (0.0-7.3); Platelet Count 181 K/mm3 (140-440); Red Blood Count 4.01 M/mm3 (3.65-5.03); Red Cell Distribution Width 13.3 % (13.2-15.2)
[2020-02-21 22:18] LABS: Alanine Aminotransferase 23 units/L (7-56); Albumin 4.3 g/dL (3.9-5); BUN/Creatinine Ratio 10; Blood Urea Nitrogen 9 mg/dL (9-20); Calcium 9.6 mg/dL (8.4-10.2); Hemolysis Index 15
[2020-02-21 22:29] LABS: Bilirubin,Urine NEG (Negative); Blood,Urine NEG (Negative); Color,Urine Colorless (Yellow); Protein,Urine <15 mg/dL mg/dL (Negative); RBC,Urine < 1.0 /HPF (0.0-6.0); Urobilinogen,Urine < 2.0 mg/dL (<2.0)
[2020-02-21 22:36] LABS: Amphetamine Screen,Urine PRESUMPTIVE NEGATIVE; Benzodiazepines Screen,Urine PRESUMPTIVE NEGATIVE; Cannabinoid Screen,Urine PRESUMPTIVE NEGATIVE; Cocaine Screen,Urine PRESUMPTIVE NEGATIVE; Methadone Screen,Urine PRESUMPTIVE NEGATIVE; Opiate Screen,Urine PRESUMPTIVE NEGATIVE
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
[2020-02-22] MEDS ORDERED: NON-FORMULARY EACH (Clonazepam [Klonopin] 1 MG) PO SCH (10:30)
[2020-02-22] MEDS ORDERED: DIVALPROEX DR 250 MG TAB PO SCH (11:00)
[2020-02-22] MEDS ORDERED: risperiDONE 3 MG TAB PO SCH (11:00)
[2020-02-22] MEDS ORDERED: clonazePAM 0.5 MG TAB PO SCH (11:00)
[2020-02-22] MEDS ORDERED: LORazepam 2 MG/ML VIAL IM PRN (12:29)
[2020-02-22] MEDS ORDERED: HALOPERIDOL LACTATE 5 MG/1 ML INJ IM PRN (12:29)
[2020-02-22] MEDS ORDERED: NON-FORMULARY EACH (Gabapentin [Neurontin] 800 MG) PO SCH (14:00)
[2020-02-22] MEDS ORDERED: GABAPENTIN 400 MG CAP PO SCH (14:00)
[2020-02-22 16:08] VITALS: BP 119/45
[2020-02-22] MEDS ORDERED: busPIRone 5 MG TAB PO SCH (22:00)
== END 2020-02-22 18:34 ==
LOC: ED 19:47
DX: R45.851 Suicidal ideations (principal); K21.9 Gastro-esophageal reflux disease without esophagitis; R07.89 Other chest pain; Z72.89 Other problems related to lifestyle; F20.9 Schizophrenia, unspecified; Z79.1 Long term (current) use of non-steroidal anti-inflammatories (NSAID); Z79.2 Long term (current) use of antibiotics; Z79.899 Other long term (current) drug therapy
CPT/HCPCS: 36415; 71046; 80053; 80307; 81001; 84484; 85025; 93005; 96372; 99285; J1630; J2060; 80320; G0480

== ENCOUNTER 2020-02-29 22:21 | Emergency (ER) | payer MEDICAID | END 2020-02-29 22:30 | disposition left against medical advice (07) | LOC: ED 22:21 | DX: F10.10 Alcohol abuse, uncomplicated (principal); Z53.21 Procedure and treatment not carried out due to patient leaving prior to being seen by health care provider ==

== ENCOUNTER 2020-03-01 10:04 | Emergency (ER) | payer MEDICAID ==
[2020-03-01 10:13] VITALS: BP 147/103
== END 2020-03-01 11:12 ==
LOC: ED 10:04
DX: R07.89 Other chest pain (principal); Z53.21 Procedure and treatment not carried out due to patient leaving prior to being seen by health care provider
CPT/HCPCS: 93005

== ENCOUNTER 2020-03-05 20:41 | Emergency (ER) | payer MEDICAID ==
[2020-03-05 20:48] VITALS: BP 124/89
[2020-03-05 22:09] LABS: Basophils % (Auto) 0.7 % (0.0-1.8); Eosinophils # (Auto) 0.3 K/mm3 (0.0-0.4); Eosinophils % (Auto) 3.9 % (0.0-4.3); Hematocrit 42.7 % (35.5-45.6); Hemoglobin 14.4 gm/dl (11.8-15.2); Lymphocytes # (Auto) 3.7 K/mm3 (1.2-5.4); Lymphocytes % (Auto) 51.4 % (13.4-35.0); Mean Corpuscular HGB Conc 34 % (32-34); Mean Corpuscular Volume 101 fl (84-94); Monocytes # (Auto) 0.5 K/mm3 (0.0-0.8); Monocytes % (Auto) 6.9 % (0.0-7.3); Platelet Count 237 K/mm3 (140-440); Red Blood Count 4.24 M/mm3 (3.65-5.03); Red Cell Distribution Width 13.4 % (13.2-15.2)
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
[2020-03-05 22:27] LABS: BUN/Creatinine Ratio 8; Blood Urea Nitrogen 7 mg/dL (9-20); Calcium 9.4 mg/dL (8.4-10.2); Hemolysis Index 8
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
== END 2020-03-05 22:25 | disposition left against medical advice (07) ==
LOC: ED 20:41
DX: R51.9 Headache, unspecified (principal); F20.9 Schizophrenia, unspecified; Z79.899 Other long term (current) drug therapy
CPT/HCPCS: 36415; 70450; 80048; 80320; 85025; G0480

== ENCOUNTER 2020-03-21 16:33 | Emergency (ER) | payer MEDICAID ==
--- NOTE | 2020-03-21 16:49 | Event Note ---
ED Screening Note ED Screening Note: sent from [place] out of [place] had anxiety attack co for benzo w/d This initial assessment/diagnostic orders/clinical plan/treatment(s) is/are subject to change based on patients health status, clinical progression and re- assessment by fellow clinical providers in the ED. Further treatment and workup at subsequent clinical providers discretion. Patient/guardian urged not to elope from the ED as their condition may be serious if not clinically assessed and managed. Initial orders include: ACC for monitoring and eval
--- NOTE | 2020-03-22 03:41 | Emergency Department Report ---
ED Anxiety HPI - General Chief Complaint: Anxiety Stated Complaint: ANIXETY Time Seen by Provider: 03/21/20 16:49 Source: patient Mode of arrival: Ambulatory - History of Present Illness Initial Comments: Patient is a 30-year-old white male with a history of schizophrenia, panic attack, anxiety and depression who presents to the ED with complaint of worsening anxiety and panic attacks for the last 3 days after he ran out of his medications. Patient states that he usually takes Klonopin 1 mg for his anxiety and panic attacks but ran out of this medication 3 days ago. Patient states that his psychiatrist is called Dr. Nava and he has not seen his psychiatrist for the last 30 days. Patient denies hallucinations, nausea, vomiting, chest pain, change in vision, syncope, suicidal or homicidal ideations, headache, abdominal pain, fever, chills, diarrhea or change in vision. MD Complaint: anxiety, other (Ran out of medication for anxiety, Klonopin) -: Sudden, days(s) (3) Symptoms: extremity numbness Place: home Previous History of Same: Yes (chronic) Severity: mild Quality: constant Provoking factors: emotional stress Improves With: medication, other (ran out of his medications 3 daysd ago) Worsens With: nothing Associated symptoms: denies: chest pain, shortness of breath, palpitations, diaphoresis, denies other symptoms, confusion, cough, headaches, anorexia, nausea/vomiting, rash, seizure, syncope - Related Data Home Medications: Home Medications Medication Instructions Recorded Confirmed Last Taken Gabapentin [Neurontin] 800 mg PO TID 02/22/20 02/22/20 Unknown busPIRone [Buspar] 5 mg PO BID 02/22/20 02/22/20 Unknown clonazePAM [Klonopin] 1 mg PO TID 02/22/20 02/22/20 Unknown risperiDONE [RisperDAL] 3 mg PO QDAY 02/22/20 02/22/20 Unknown Allergies/Adverse Reactions: Allergies Allergy/AdvReac Type Severity Reaction Status Date / Time No Known Allergies Allergy Verified 03/21/20 16:45 ED Review of Systems ROS: Stated complaint: ANIXETY Other details as noted in HPI Constitutional: denies: chills, fever Eyes: denies: eye pain, eye discharge, vision change ENT: denies: ear pain, throat pain Respiratory: denies: cough, shortness of breath, wheezing Cardiovascular: denies: chest pain, palpitations Endocrine: no symptoms reported Gastrointestinal: denies: abdominal pain, nausea, diarrhea Genitourinary: denies: urgency, dysuria Musculoskeletal: denies: back pain, joint swelling, arthralgia Skin: denies: rash, lesions Neurological: denies: headache, weakness, paresthesias Psychiatric: anxiety, depression. denies: auditory hallucinations, visual hallucinations, homicidal thoughts, suicidal thoughts Hematological/Lymphatic: denies: easy bleeding, easy bruising ED Past Medical Hx - Past Medical History Hx Psychiatric Treatment: Yes (schizophrenia; anxiety) - Social History Smoking Status: Current Every Day Smoker Substance Use Type: Alcohol - Medications Home Medications: Home Medications Medication Instructions Recorded Confirmed Last Taken Type Gabapentin [Neurontin] 800 mg PO TID 02/22/20 02/22/20 Unknown History busPIRone [Buspar] 5 mg PO BID 02/22/20 02/22/20 Unknown History clonazePAM [Klonopin] 1 mg PO TID 02/22/20 02/22/20 Unknown History risperiDONE [RisperDAL] 3 mg PO QDAY 02/22/20 02/22/20 Unknown History ED Physical Exam - General Limitations: No Limitations General appearance: alert, in no apparent distress - Head Head exam: Present: atraumatic, normocephalic, normal inspection - Eye Eye exam: Present: normal appearance, PERRL, EOMI Pupils: Present: normal accommodation - ENT ENT exam: Present: normal exam, normal orophraynx, mucous membranes moist, TM's normal bilaterally, normal external ear exam - Neck Neck exam: Present: normal inspection, full ROM - Respiratory Respiratory exam: Present: normal lung sounds bilaterally. Absent: respiratory distress, wheezes, rales, rhonchi, chest wall tenderness, accessory muscle use, decreased breath sounds, prolonged expiratory - Cardiovascular Cardiovascular Exam: Present: normal rhythm, tachycardia. Absent: systolic murmur, diastolic murmur, rubs, gallop - GI/Abdominal GI/Abdominal exam: Present: soft, normal bowel sounds. Absent: tenderness, guarding, rebound, hyperactive bowel sounds, hypoactive bowel sounds, organomegaly - Extremities Exam Extremities exam: Present: normal inspection, full ROM, normal capillary refill - Back Exam Back exam: Present: normal inspection, full ROM. Absent: tenderness, CVA tenderness (R), CVA tenderness (L), muscle spasm, vertebral tenderness - Neurological Exam Neurological exam: Present: alert, oriented X3, CN II-XII intact, normal gait, reflexes normal - Psychiatric Psychiatric exam: Present: normal affect, normal mood, depressed, anxious, flat affect. Absent: agitated, manic, homicidal ideation, suicidal ideation - Skin Skin exam: Present: warm, dry, intact, normal color. Absent: rash ED Course Vital Signs 03/21/20 16:48 Temperature 98.3 F Pulse Rate 108 H Respiratory 20 Rate Blood Pressure 140/91 O2 Sat by Pulse 96 Oximetry ED Medical Decision Making - Medical Decision Making This is a 30-year-old white male with a history of schizophrenia, panic attack, anxiety and depression who presents to the ED with complaint of worsening anxiety and panic attacks for the last 3 days after he ran out of his medications. Patient states that he usually takes Klonopin 1 mg for his anxiety and panic attacks but ran out of this medication 3 days ago. Patient states that his psychiatrist is called Dr. Nava and he has not seen his psychiatrist for the last 30 days. In the ED, patient is alert and oriented x3 and is not in distress, resting comfortably in the bed in no distress but tachycardic and afebrile in triage. Patient was treated in the ED with Vistaril and was discharged home and advised to follow-up with his psychiatrist in 3 to 5 days for reevaluation. Patient is not suicidal or homicidal at this time but asks to be kept in the hospital "for my anxiety and panic attacks". Patient was advised return to the ED immediately if symptoms get worse. - Differential Diagnosis anxiety; depression; panic attack Critical care attestation.: If time is entered above; I have spent that time in minutes in the direct care of this critically ill patient, excluding procedure time. ED Disposition Clinical Impression: Panic attack due to exceptional stress, Homelessness, Anxiety as acute reaction to exceptional stress Disposition: DC-01 TO HOME OR SELFCARE Is pt being admited?: No Does the pt Need Aspirin: No Condition: Stable Instructions: Panic Attack, [id number], Generalized Anxiety Disorder, Adult Additional Instructions: Follow-up with your psychiatrist in 3 to 5 days for reevaluation. Return to the ED immediately if symptoms get worse. Referrals: [facility] [Provider Group] - 3[facility] Time of Disposition: 03:55 Print Language: ALB[place]
[2020-03-22] MEDS ORDERED: hydrOXYzine PAMOATE 25 MG CAP PO ONE (03:57)
[2020-03-22 04:10] VITALS: BP 130/72
== END 2020-03-22 04:10 | disposition home or self-care (01) ==
LOC: ED 16:33
DX: F41.1 Generalized anxiety disorder (principal); F43.0 Acute stress reaction; Z59.0 Homelessness; F17.200 Nicotine dependence, unspecified, uncomplicated; Z79.899 Other long term (current) drug therapy
CPT/HCPCS: 99283; Q0177

== ENCOUNTER 2020-10-14 16:23 | Emergency (ER) | payer MEDICAID ==
[2020-10-14] MEDS ORDERED: LORazepam 2 MG/ML VIAL IM PRN (16:46)
[2020-10-14] MEDS ORDERED: HALOPERIDOL LACTATE 5 MG/1 ML INJ IM PRN (16:46)
[2020-10-14] MEDS ORDERED: diphenhydrAMINE 25 MG CAP PO PRN (16:46)
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
[2020-10-14] MEDS ORDERED: NON-FORMULARY EACH (Clonazepam [Klonopin] 1 MG Tablet) PO STA (17:15)
[2020-10-14] MEDS ORDERED: clonazePAM 0.5 MG TAB PO STA (17:18)
[2020-10-14 17:36] LABS: Bilirubin,Urine NEG (Negative); Blood,Urine NEG (Negative); Color,Urine Yellow (Yellow); Mucus,Urine 1+ /HPF; Protein,Urine <15 mg/dL mg/dL (Negative); Urobilinogen,Urine < 2.0 mg/dL (<2.0)
[2020-10-14 17:42] LABS: Amphetamine Screen,Urine Negative; Benzodiazepines Screen,Urine Negative; Cannabinoid Screen,Urine Negative; Cocaine Screen,Urine Negative; Methadone Screen,Urine Negative; Opiate Screen,Urine Negative
[2020-10-14 18:41] LABS: Hematocrit 43.6 % (35.5-45.6); Hemoglobin 15.1 gm/dl (11.8-15.2); Mean Corpuscular HGB Conc 35 % (32-34); Mean Corpuscular Volume 100 fl (84-94); Platelet Count 208 K/mm3 (140-440); Red Blood Count 4.37 M/mm3 (3.65-5.03); Red Cell Distribution Width 13.8 % (13.2-15.2)
[2020-10-14 19:00] LABS: BUN/Creatinine Ratio 23; Blood Urea Nitrogen 21 mg/dL (9-20); Hemolysis Index 28
[2020-10-15 02:26] VITALS: BP 105/62
--- NOTE | 2020-10-15 10:50 | Consultation ---
History of Present Illness - Reason for Consult Consult date: 10/15/20 Reason for consult: mental health evaluation - History of Present Psychiatric Illness Per ED Note:The patient is a 30-year-old gentleman. He has a history of methamphetamine use, psychiatric history, explosive behavior. He is brought to the hospital by EMS. Apparently, 911 was contacted because the patient endorsed suicidality. The patient tells me that he is not suicidal. The patient states he needs his Klonopin. The patient denies physical pain. The patient states he does not want to overdose. The patient is somewhat disorganized, and not accompanied by friends or family at this time for additional information or collateral information. Per Note: Spoke with Nikole Horn, guardianship case management with [facility] [phone]. Reports that pt carries a dx of Cardiovascular disease, ADHD, MDD, PTSD, Moderate IDD, and Substance Abuse. Pt is followed by Dr. Jha in [place] for medication management. Pt is prescribed Vistaril, risperidone 0.5mg, and Zoloft 75mg. Reports that pt was hospitalized at [facility] less than 1 month ago due to similar complaints. Pt has a hx of verbalizing SI and HI. Reports that pt began Walking out in front of traffic and indicated that he wanted to lay on train track to give up. Reports that pt lives in a fdc, [facility], in [place]. Recommendations: Requested Mobile Crisis Team for further assessment as pt is dx with Moderate Intellectual Developmental Disability. Rob Cervantes is a 30 year old male with a history of Moderate Intellectual Developmental Disability, Schizophrenia and Bipolar who presents to the Ed with suicidal ideation. In my interview with the patient, he is calm and cooperative. The patient states " I'm trying to get my meds right." He reports has a psychiatrist and attends monthly therapy sessions. The patient is focused on discharge. He denies any current suicidal/homicidal ideation and denies hallucinations. Diagnoses: Schizophrenia, Bipolar Suicide attempts or Self-harm behavior: Denies Prior psychiatric hospitalizations: Multiple Substance Abuse history: Denies Previous psychiatric medications tried: Klonopin, Gabapentin, Depakote Outpatient treatment: Yes PAST MEDICAL HISTORY: unknown Family Psychiatric History: None reported or documented SOCIAL HISTORY Marital Status: Single Living Arrangements: Lives in a fdc Employment Status: unknown Access to guns/weapons: Denies Education: 12 grade History of Abuse: none reported Legal History: none reported REVIEW OF SYSTEMS Constitutional: Negative for weight loss ENT: Negative for stridor Respiratory: Negative for cough or hemoptysis All other systems reviewed and are negative MENTAL STATUS EXAMINATION General Appearance and Behavior: Age appropriate, dressed appropriately, calm and cooperative Cooperation: Participating Psychomotor Behavior: psychomotor normal Mood: calm Affect and affective range: Congruent with stated mood Thought Process: goal directed Thought Content: with normal limits Speech: Normal volume, Regular rate and rhythm, Intellectual Functioning: Average Suicidal Ideation: Denied Homicidal Ideation: Denied Hallucinations: Denies Delusions: None elicited Impulse Control: Unimpaired Insight and Judgment: Limited insight and judgment Memory: Normal Attention: Undivided Orientation: Alert, oriented Assessment and Plan (1) Bipolar disorder, current episode depressed, moderate- F31.32 Treatment plan Risks, benefits and alternatives of medications discussed with the patient, questions answered and consent obtained from patient. PSYCHOTHERAPY: Supportive psychotherapy provided MEDICAL: Per primary team DELIRIUM PRECAUTIONS: Please re-orient patient frequently, keep lights on during the day, and minimize benzodiazepines and opiates as these medications could worsen patient's confusion. QUALITY IMPROVEMENT ANALYST: Per medical team DISPOSITION: Do not recommend acute inpatient psychiatric hospitalization at this time. The patient understands that if suicidal or homicidal thoughts are to arise he is to seek immediate assistance. The internet assessor to place resources on the chart FOLLOW-UP: Will sign off Thank you for the consult. Please contact with any questions and/or concerns. Case staffed with Dr. Lozano Mental Status Exam - Vital signs Medications and Allergies Medications and Allergies Allergies Allergy/AdvReac Type Severity Reaction Status Date / Time No Known Allergies Allergy Verified 03/21/20 16:45 Home Medications Medication Instructions Recorded Confirmed Last Taken Type Gabapentin [Neurontin] 800 mg PO TID 02/22/20 02/22/20 Unknown History busPIRone [Buspar] 5 mg PO BID 02/22/20 02/22/20 Unknown History clonazePAM [Klonopin] 1 mg PO TID 02/22/20 02/22/20 Unknown History risperiDONE [RisperDAL] 3 mg PO QDAY 02/22/20 02/22/20 Unknown History Active Meds: Active Medications Diphenhydramine HCl (Diphenhydramine 25 Mg Cap) 50 mg PO QHS PRN PRN Reason: Insomnia Haloperidol Lactate (Haloperidol Lactate 5 Mg/1 Ml Inj) 5 mg IM Q6HR PRN PRN Reason: Agitation Lorazepam (Lorazepam 2 Mg/Ml Vial) 2 mg IM Q4HR PRN PRN Reason: Agitation Mental Status Exam - Vital signs Last Vital Signs Temp 97.5 F L 10/15/20 02:13 Pulse 89 10/15/20 02:13 Resp 16 10/15/20 02:13 BP 105/62 10/15/20 02:13 Pulse Ox 96 10/15/20 08:08 Results Result Diagrams: 10/14/20 18:18 10/14/20 18:18 Abnormal lab results 10/14/20 10/14/20 10/14/20 Range/Units 18:18 18:18 18:18 MCV (84-94) fl MCH (28-32) pg MCHC (32-34) % BUN 21 H (9-20) mg/dL Glucose 101 H (75-100) mg/dL Urine WBC (Auto) (0.0-6.0) /HPF Salicylates < 0.3 L (2.8-20.0) mg/dL Acetaminophen 5.0 L (10.0-30.0) ug/mL 10/14/20 10/14/20 Range/Units 18:18 Unknown MCV 100 H (84-94) fl MCH 35 H (28-32) pg MCHC 35 H (32-34) % BUN (9-20) mg/dL Glucose (75-100) mg/dL Urine WBC (Auto) 7.0 H (0.0-6.0) /HPF Salicylates (2.8-20.0) mg/dL Acetaminophen (10.0-30.0) ug/mL All other labs normal.
== END 2020-10-15 15:19 ==
LOC: EEVIPCON 16:23 → ED 16:23
DX: F25.9 Schizoaffective disorder, unspecified (principal); F41.9 Anxiety disorder, unspecified; F17.200 Nicotine dependence, unspecified, uncomplicated; Z13.30 Encounter for screening examination for mental health and behavioral disorders, unspecified; Z20.822 Contact with and (suspected) exposure to COVID-19; Z79.899 Other long term (current) drug therapy
CPT/HCPCS: 36415; 80048; 80307; 81001; 84443; 85027; 99285; U0003; 80320; G0480

== ENCOUNTER 2021-11-07 19:50 | Emergency (ER) | payer MEDICAID ==
[2021-11-07 20:52] LABS: Hematocrit 37.5 % (35.5-45.6); Hemoglobin 12.9 gm/dl (11.8-15.2); Mean Corpuscular HGB Conc 35 % (32-34); Mean Corpuscular Volume 103 fl (84-94); Platelet Count 110 K/mm3 (140-440); Red Blood Count 3.63 M/mm3 (3.65-5.03); Red Cell Distribution Width 13.7 % (13.2-15.2)
[2021-11-07 21:06] LABS: BUN/Creatinine Ratio 23; Blood Urea Nitrogen 18 mg/dL (9-20); Calcium 9.2 mg/dL (8.4-10.2); Hemolysis Index 25
[2021-11-07 22:10] LABS: Basophils % (Manual) 0 % (0.0-1.8); RBC Morphology Normal; Total Cells Counted 100
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
[2021-11-08 08:30] LABS: Amphetamine Screen,Urine Negative; Bacteria,Urine 1+ /HPF (Negative); Benzodiazepines Screen,Urine Negative; Cannabinoid Screen,Urine Negative; Cocaine Screen,Urine Negative; Methadone Screen,Urine Negative; Opiate Screen,Urine Negative
[2021-11-08 08:40] LABS: Color,Urine Yellow (Yellow)
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
[2021-11-08 16:58] VITALS: BP 121/85
== END 2021-11-08 19:06 | disposition home or self-care (01) ==
LOC: ED 19:50
DX: R46.89 Other symptoms and signs involving appearance and behavior (principal); R44.0 Auditory hallucinations
CPT/HCPCS: 36415; 80048; 80307; 80320; 81001; 85007; 85025; 87086; 99284; G0480